=== PATIENT | female | born 1960 | race African-American/Black ===

== ENCOUNTER 2017-02-13 08:43 | Emergency (ER) | payer BC ==
[2017-02-13] MEDS ORDERED: LIDOCAINE 2% VISCOUS SOLN 20 ML UDCUP PO ONE (09:31)
[2017-02-13] MEDS ORDERED: PREDNISONE 20 MG TABLET PO ONE (09:31)
[2017-02-13] MEDS ORDERED: AMLODIPINE BESYLATE 5 MG TABLET PO ONE (09:31)
[2017-02-13] MEDS ORDERED: MAG HYDROX/AL HYDROX/SIMETH SUSP 30 ML UDCUP PO ONE (09:31)
[2017-02-13] MEDS ORDERED: METOCLOPRAMIDE HCL ORAL SOLN 10 MG/10 ML UDCUP PO ONE (09:31)
--- NOTE | 2017-02-13 10:52 | ER Document Report ---
ED General - General Chief Complaint: High Blood Pressure Stated Complaint: SORE THROAT Time Seen by Provider: 02/13/17 09:23 TRAVEL OUTSIDE OF THE [place] IN LAST 30 DAYS: No - HPI Patient complains to provider of: Sore throat Notes: Patient is coming in for evaluation of sore throat patient noted in triage to have elevated blood pressure. Patient states sore throat ongoing for the last 2 -3 days. Patient states that she does smoke cigarettes no recent sick contacts no recent antibiotics. Patient also denies any recent travel. Upon my evaluation patient is sitting comfortably no obvious distress no drooling controlling her own secretions managing her own airway. Patient states that she was on blood pressure medication at one time however she has not had any medication greater than a month. States that she is unaware of the medication as she was on previously. Denies any headaches chest pain abdominal pain nausea vomiting fevers or chills. - Related Data Allergies/Adverse Reactions: No Known Allergies Allergy (Verified 02/13/17 08:53) Past Medical History - Social History Smoking Status: Current Every Day Smoker Chew tobacco use (# tins/day): No Frequency of alcohol use: None Drug Abuse: None Family History: Reviewed & Not Pertinent - Past Medical History Cardiac Medical History: Reports: Hx Hypertension Renal/ Medical History: Denies: Hx Peritoneal Dialysis Surgical Hx: Negative - Immunizations Hx Diphtheria, Pertussis, Tetanus Vaccination: No Review of Systems - Review of Systems Constitutional: Other - Hypertension EENT: Throat pain Cardiovascular: No symptoms reported Respiratory: No symptoms reported Gastrointestinal: No symptoms reported Genitourinary: No symptoms reported Female Genitourinary: No symptoms reported Musculoskeletal: No symptoms reported Skin: No symptoms reported Hematologic/Lymphatic: No symptoms reported Neurological/Psychological: No symptoms reported Physical Exam - Vital signs Vitals: Temp Pulse Resp BP Pulse Ox 99.7 F 85 18 179/121 H 97 02/13/17 08:52 02/13/17 08:52 02/13/17 08:52 02/13/17 08:52 02/13/17 08:52 Interpretation: Hypertensive - General General appearance: Appears well, Alert - HEENT Head: Normocephalic, Atraumatic Eyes: Normal Pupils: PERRL Ears: Normal External canal: Normal Tympanic membrane: Normal Sinus: Normal Nasal: Normal Pharynx: Erythema Neck: Normal - Respiratory Respiratory status: No respiratory distress Chest status: Nontender Breath sounds: Normal Chest palpation: Normal - Cardiovascular Rhythm: Regular Heart sounds: Normal auscultation Murmur: No - Abdominal Inspection: Normal Distension: No distension Bowel sounds: Normal Tenderness: Nontender Organomegaly: No organomegaly - Back Back: Normal, Nontender - Extremities General upper extremity: Normal inspection, Nontender, Normal color, Normal ROM , Normal temperature General lower extremity: Normal inspection, Nontender, Normal color, Normal ROM , Normal temperature, Normal weight bearing. No: Rodger's sign - Neurological Neuro grossly intact: Yes Cognition: Normal Orientation: AAOx4 [place] Coma Scale Eye Opening: Spontaneous Carl Coma Scale Verbal: Oriented Carl Coma Scale Motor: Obeys Commands [place] Coma Scale Total: 15 Speech: Normal Motor strength normal: LUE, RUE, LLE, RLE Sensory: Normal - Psychological Associated symptoms: Normal affect, Normal mood - Skin Skin Temperature: Warm Skin Moisture: Dry Skin Color: Normal Course - Re-evaluation Re-evalutation: 02/13/17 14:05 Patient coming in for evaluation of hypertension. Patient was given a dose of amlodipine here. Patient was also given a prescription for amlodipine encouraged follow-up with primary care physician for further evaluation of her hypertension. Patient sore throat more likely related to her smoking viral etiology there is no signs of strep patient will be discharged home. - Vital Signs Vital signs: Temp Pulse Resp BP Pulse Ox 99.0 F 73 20 150/107 H 97 02/13/17 10:53 02/13/17 10:53 02/13/17 10:53 02/13/17 10:53 02/13/17 10:53 Discharge - Discharge Clinical Impression: Sore throat (viral) Hypertension Qualifiers: Hypertension type: essential hypertension Qualified Code(s): I10 - Essential ( primary) hypertension Condition: Good Disposition: HOME, SELF-CARE Instructions: Calcium Channel Blockers ([facility]), High Blood Pressure, Requiring Treatment ([facility]), Sore Throat ([facility]) Additional Instructions: Follow-up with your primary care physician. Return to ER symptoms worsen. Take medications as prescribed. More likely your sore throat is either due to irritation from smoking or a viral etiology. Prescriptions: Amlodipine Besylate 5 mg PO DAILY #30 tab Prednisone [Deltasone 20 mg Tablet] 3 tab PO DAILY 5 Days tablet Forms: Elevated Blood Pressure
[2017-02-13 10:56] VITALS: BP 150/107
== END 2017-02-13 10:56 | disposition home or self-care (01) ==
LOC: ER 08:43
DX: J02.9 Acute pharyngitis, unspecified (principal); I10 Essential (primary) hypertension; F17.200 Nicotine dependence, unspecified, uncomplicated
CPT/HCPCS: 99282; 87070; 87880; J3490; J7512

== ENCOUNTER 2017-03-01 09:59 | Emergency (ER) | payer BC ==
[2017-03-01] MEDS ORDERED: ALBUTEROL SULFATE 0.083% NEB 2.5 MG/3 ML AMPUL NEB ONE (10:58)
--- NOTE | 2017-03-01 11:59 | RADIOLOGY REPORT (SQ) ---
EXAM DESCRIPTION: SOFT TISSUE NECK COMPLETED DATE/TIME: 03/01/2017 11:30 am REASON FOR STUDY: chest COMPARISON: None. NUMBER OF VIEWS: Two views. TECHNIQUE: AP and lateral radiographic image of the soft tissues of the neck. LIMITATIONS: None. FINDINGS: EPIGLOTTIS: Normal. Contour normal. Aryepiglottic folds normal. PREVERTEBRAL SOFT TISSUES: Normal. No soft tissue swelling. SUBGLOTTIC AREA: Normal. No narrowing. RETROPHARYNGEAL SPACE: Normal. No soft tissue masses. BONES: No significant findings. Degenerative changes in the cervical spine. LUNG APICES: Normal. OTHER: No radiopaque foreign body. No other significant finding. IMPRESSION: NEGATIVE STUDY OF THE SOFT TISSUES OF THE NECK. TECHNICAL DOCUMENTATION: JOB ID: [id number] [employer]- All Rights Reserved
--- NOTE | 2017-03-01 11:59 | RADIOLOGY REPORT (SQ) ---
EXAM DESCRIPTION: CHEST PA/LAT COMPLETED DATE/TIME: 03/01/2017 11:30 am REASON FOR STUDY: chest COMPARISON: None. EXAM PARAMETERS: NUMBER OF VIEWS: two views TECHNIQUE: Digital Frontal and Lateral radiographic views of the chest acquired. RADIATION DOSE: NA LIMITATIONS: none FINDINGS: LUNGS AND PLEURA: No opacities, masses or pneumothorax. No pleural effusion. MEDIASTINUM AND HILAR STRUCTURES: No masses or contour abnormalities. HEART AND VASCULAR STRUCTURES: Heart normal size. No evidence for failure. BONES: No acute findings. HARDWARE: None in the chest. OTHER: No other significant finding. IMPRESSION: NO SIGNIFICANT RADIOGRAPHIC FINDING IN THE CHEST. TECHNICAL DOCUMENTATION: JOB ID: [id number] [employer]- All Rights Reserved
--- NOTE | 2017-03-01 12:13 | ER Document Report ---
HPI - HPI Patient complains to provider of: Sore throat Onset: Other Onset/Duration: Gradual Quality of pain: Burning Severity: Moderate Pain Level: 3 Context: Patient states she has had a sore throat for 1 month, was seen 2 weeks ago and given prednisone. Now she has right ear ringing and popping, and productive cough. Unsure if any fever. Associated Symptoms: Productive cough, Sore throat. denies: Fever, Headache Exacerbated by: Denies Relieved by: Denies Similar symptoms previously: Yes Recently seen / treated by doctor: Yes - ROS ROS below otherwise negative: Yes Systems Reviewed and Negative: Yes All other systems reviewed and negative - CONSTITUTIONAL Constitutional: DENIES: Fever - EENT EENT: REPORTS: Sore Throat, Ear Pain, Nasal Drainage-Clear, Congestion - NEURO Neurology: DENIES: Headache - CARDIOVASCULAR Cardiovascular: DENIES: Chest pain - RESPIRATORY Respiratory: REPORTS: Coughing. DENIES: Trouble Breathing - GASTROINTESTINAL Gastrointestinal: DENIES: Abdominal Pain - URINARY Urinary: DENIES: Dysuria - REPRODUCTIVE Reproductive: DENIES: : - MUSCULOSKELETAL Musculoskeletal: DENIES: Extremity pain - DERM Skin Color: Normal Past Medical History - General Information source: Patient - Social History Smoking Status: Current Every Day Smoker Chew tobacco use (# tins/day): No Frequency of alcohol use: None Drug Abuse: None Lives with: Family Family History: Reviewed & Not Pertinent Patient has suicidal ideation: No Patient has homicidal ideation: No - Past Medical History Cardiac Medical History: Reports: Hx Hypertension Surgical Hx: Negative - Immunizations Hx Diphtheria, Pertussis, Tetanus Vaccination: No Vertical Provider Document - CONSTITUTIONAL Agree With Documented VS: Yes Exam Limitations: No Limitations General Appearance: WD/WN, No Apparent Distress - INFECTION CONTROL TRAVEL OUTSIDE OF THE [place] IN LAST 30 DAYS: No - HEENT HEENT: Atraumatic, Normocephalic, Pharyngeal Erythema - mild Notes: TMs dull bilaterally, right more than left. - NECK Neck: Normal Inspection, Supple - RESPIRATORY Respiratory: No Respiratory Distress, Rhonchi, Wheezing O2 Sat by Pulse Oximetry: 99 - CARDIOVASCULAR Cardiovascular: Regular Rate, Regular Rhythm - GI/ABDOMEN Gastrointestinal: Abdomen Soft, Abdomen Non-Tender - MUSCULOSKELETAL/EXTREMETIES Musculoskeletal/Extremeties: MAEW - NEURO Level of Consciousness: Awake, Alert, Appropriate - DERM Integumentary: Warm, Dry, No Rash Course - Re-evaluation Re-evalutation: 03/01/17 12:05 X-rays showed no swelling or abnormality. This was discussed with the patient. - Vital Signs Vital signs: Temp Pulse Resp BP Pulse Ox 9.3 F L 78 16 169/98 H 99 03/01/17 10:15 03/01/17 10:15 03/01/17 10:15 03/01/17 10:15 03/01/17 10:15 Discharge - Discharge Clinical Impression: Sore throat, URI, acute, Bronchitis Condition: Good Disposition: HOME, SELF-CARE Additional Instructions: Take all meds as prescribed stop smoking Coricidin HBP for sinus and chest congestion Inhaler 2 puffs every 4 hours for coughing and/or wheezing [facility], information is on your discharge paperwork Tylenol or Motrin as needed Push fluids return if worsens and as needed Prescriptions: Azithromycin [Zithromax 250 mg Tablet] 250 mg PO ASDIR PRN #6 tablet PRN Reason: Prednisone 20 mg PO BID #6 tablet
[2017-03-01] MEDS ORDERED: ALBUTEROL SULFATE HFA (90 MCG/PUFF) 8 GM MDI (1 MDI/ER DISP) IH ONE (12:15)
[2017-03-01 12:27] VITALS: BP 150/85
== END 2017-03-01 12:27 | disposition home or self-care (01) ==
LOC: ER 09:59
DX: J02.9 Acute pharyngitis, unspecified (principal); J40 Bronchitis, not specified as acute or chronic; R05 Cough; H93.11 Tinnitus, right ear; F17.200 Nicotine dependence, unspecified, uncomplicated; I10 Essential (primary) hypertension
CPT/HCPCS: 70360; 71020; 94640; 99283

== ENCOUNTER 2017-04-30 04:55 | Emergency (ER) | payer BC ==
--- NOTE | 2017-04-30 05:48 | ER Document Report ---
ED General - General TRAVEL OUTSIDE OF THE [place] IN LAST 30 DAYS: No <RAGHU ZULUAGA - Last Filed: 04/30/17 07:14> <DUANECHACORTAADAL - Last Filed: 04/30/17 08:18> - General Chief Complaint: Constipation Stated Complaint: CANNOT POOP Time Seen by Provider: 04/30/17 05:13 - HPI Notes: Patient is a 56-year-old female who presents ED complaining of constipation and inability to have a bowel movement 1 month. Patient states that she did try some [id number] meds with minimal relief. Patient states that over the last 1-2 weeks she has started having abdominal cramping and rectal pain when trying to have a bowel movement. Patient states that she has not noticed any blood. Patient states that she is leaking from her rectum and the color is a brown thin liquid. Patient states that she is on some medications to help her swallow food and her blood pressure, but does not remember what medicine she is on exactly. Patient states that she was evaluated by her PCM 2 weeks ago, but stated that they did not do anything at that time for her constipation. Patient denies any narcotic use or pain medications otherwise. She denies any drug allergies. Patient states that she is otherwise eating and drinking without difficulties. She is urinating normally. Patient states that when she is on the toilet and trying to push out the stool, that is when she becomes dizzy. Patient denies any current dizziness right now. Denies any headache, fever, URI, sore throat, chest pain, palpitations, syncope, cough, shortness of breath, wheeze, dyspnea, nausea/vomiting/diarrhea, urinary retention, dysuria, hematuria, loss of control of bowel or bladder, back pain, or rash. (RAGHU ZULUAGA ) - Related Data Allergies/Adverse Reactions: No Known Allergies Allergy (Verified 04/30/17 04:59) Past Medical History - Social History Smoking Status: Unknown if Ever Smoked Family History: Reviewed & Not Pertinent - Past Medical History Cardiac Medical History: Reports: Hx Hypertension Renal/ Medical History: Denies: Hx Peritoneal Dialysis - Immunizations Hx Diphtheria, Pertussis, Tetanus Vaccination: No <RAGHU ZULUAGA - Last Filed: 04/30/17 07:14> Review of Systems <RAGHU ZULUAGA - Last Filed: 04/30/17 07:14> <CARIELALITAADAL - Last Filed: 04/30/17 08:18> - Review of Systems Notes: REVIEW OF SYSTEMS: CONSTITUTIONAL : Denies fever, chills, or sweats. Denies recent illness. EENT: Denies eye, ear, throat, or mouth pain or symptoms. Denies nasal or sinus congestion or discharge. Denies throat, tongue, or mouth swelling or difficulty swallowing. CARDIOVASCULAR: Denies chest pain. Denies palpitations or racing or irregular heart beat. Denies ankle edema. RESPIRATORY: Denies cough, cold, or chest congestion. Denies shortness of breath, difficulty breathing, or wheezing. GASTROINTESTINAL: see hpi GENITOURINARY: Denies difficulty urinating, painful urination, burning, frequency, blood in urine, or discharge. MUSCULOSKELETAL: Denies back or neck pain or stiffness. Denies joint pain or swelling. SKIN: Denies rash, lesions or sores. NEUROLOGICAL: Denies confusion or altered mental status. Denies passing out or loss of consciousness. Denies headache. Denies weakness or paralysis or loss of use of either side. Denies problems with gait or speech. Denies sensory loss, numbness, or tingling. ALL OTHER SYSTEMS REVIEWED AND NEGATIVE. Dictation was performed using [employer] voice recognition software (RAGHU ZULUAGA) Physical Exam <RAGHU ZULUAGA - Last Filed: 04/30/17 07:14> <ADAL AMBROCIO - Last Filed: 04/30/17 08:18> - Vital signs Vitals: Temp Pulse Resp BP Pulse Ox 98.4 F 93 20 116/71 93 04/30/17 04:59 04/30/17 04:59 04/30/17 04:59 04/30/17 04:59 04/30/17 04:59 Notes: PHYSICAL EXAMINATION: GENERAL: Well-appearing, well-nourished and in no acute distress. A&Ox4 HEAD: Atraumatic, normocephalic. EYES: Pupils equal round and reactive to light, extraocular movements intact, sclera anicteric, conjunctiva are normal. ENT: Nares patent and without discharge. oropharynx clear without exudates. No tonsilar hypertrophy or erythema. Moist mucous membranes. NECK: Normal range of motion, supple without lymphadenopathy LUNGS: Breath sounds clear to auscultation bilaterally and equal. No wheezes rales or rhonchi. HEART: Regular rate and rhythm without murmurs, rubs, gallops. ABDOMEN: Soft, nontender, nondistended abdomen. No guarding, no rebound. No masses appreciated. Normal bowel sounds present. No CVA tenderness bilaterally. Rectal: + impaction w/o sosa blood. Musculoskeletal: FROM to passive/active. Strength 5+/5. Extremities: No cyanosis, clubbing, or edema b/l. Peripheral pulses 2+. Capillary refill less than 3 seconds. PSYCH: Normal mood, normal affect. SKIN: Warm, Dry, normal turgor, no rashes or lesions noted. (RAGHU ZULUAGA) Course - Laboratory Result Diagrams: 04/30/17 05:51 04/30/17 05:51 <RAGHU ZULUAGA - Last Filed: 04/30/17 07:14> - Laboratory Result Diagrams: 04/30/17 05:51 04/30/17 05:51 <ADAL AMBROCIO - Last Filed: 04/30/17 08:18> - Re-evaluation Re-evalutation: 04/30/17 05:50 Patient is an afebrile, well-hydrated, 56-year-old female who presents the ED with constipation and fecal impaction to the rectum. Vitals are stable. PE is otherwise unremarkable. Bowel disimpaction was performed successfully without any complications. There was no sosa blood noted. CBC, CMP, acute abdomen series pending. We will give the patient an enema pending the x-ray result. 04/30/17 07:[address] Ambrocio. Reviewed results with patient. Enema ordered. Pt to be discharged thereafter if everything goes well and she is feeling better. Labs unremarkable Imaging unremarkable. (RAGHU ZULUAGA) 04/30/17 08:16 Reevaluation: Patient and nurse report modest results from enema. Patient states she is more comfortable. Results of radiographic studies discussed with patient. Ongoing management strategies discussed with patient. (ADAL AMBROCIO) - Vital Signs Vital signs: Temp Pulse Resp BP Pulse Ox 98.4 F 93 20 116/71 93 04/30/17 04:59 04/30/17 04:59 04/30/17 04:59 04/30/17 04:59 04/30/17 04:59 - Laboratory Laboratory results interpreted by me: 04/30/17 04/30/17 05:51 05:51 WBC 13.1 H RBC 5.31 H RDW 14.1 H Abs Neuts (Manual) 10.1 H Sodium 130.4 L Potassium 3.5 L Chloride 81 L Carbon Dioxide 32 H BUN 34 H Est GFR ( Amer) 56 L Est GFR (Non-Af Amer) 47 L Glucose 133 H Direct Bilirubin 0.5 H Procedures - Additional Procedures Fecal disimpaction Time performed: 05:35 Additional Procedures: Other - fecal disimpaction <RAGHU ZULUAGA - Last Filed: 04/30/17 07:14> <ADAL AMBROCIO - Last Filed: 04/30/17 08:18> - Additional Procedures Fecal disimpaction Notes: 04/30/17 05:48 An abundant amount of stool was removed from the colon. Pt tolerated procedure well No complications or blood noted. (RAGHU ZULUAGA) Discharge <RAGHU ZULUAGA - Last Filed: 04/30/17 07:14> <ADAL AMBROCIO - Last Filed: 04/30/17 08:18> - Discharge Clinical Impression: Fecal impaction in rectum Constipation Qualifiers: Constipation type: unspecified constipation type Qualified Code(s): K59.00 - Constipation, unspecified Condition: Stable Instructions: Constipation ([facility]), Stool Softener ([facility]) Additional Instructions: Maintain adequate fluid (increase water intake) intake Increase fiber in diet tylenol if needed Stool softener daily Monitor for any worsening symptoms Make sure you are staying hydrated enough to urinate and have normal BM's Recheck with your PCM in 3-5 days Consider consult with Gastroenterology for ongoing/worsening symptoms--Dr. Ricketts information provided Return to the ED with any worsening symptoms and/or development of fever, headache, chest pain, palpitations, syncope, shortness of breath, trouble breathing, abdominal pain, n/v/d, blood in stool/urine, weakness, or other worsening symptoms that are concerning to you. Prescriptions: Polyethylene Glycol 3350 [Miralax] 1 cap PO DAILY #527 powder Referrals: KATHY RICKETTS MD [ACTIVE STAFF] - Follow up as needed [facility] [Provider Group] - Follow up in 3-5 days
[2017-04-30 06:02] LABS: HEMATOCRIT 43.5 % (36.0-47.0); HEMOGLOBIN 14.9 g/dL (12.0-15.5); HGB HCT DIFFERENCE 1.2; MEAN CORPUSCULAR HGB CONC 34.2 g/dL (32.0-36.0); MEAN CORPUSCULAR VOLUME 82 fl (80-97); RED BLOOD COUNT 5.31 10^6/uL (3.72-5.28); RED CELL DISTRIBUTION WIDTH 14.1 % (11.5-14.0); WHITE BLOOD COUNT 13.1 10^3/uL (4.0-10.5)
[2017-04-30 06:17] LABS: ALANINE AMINOTRANSFERASE 23 U/L (9-52); ALBUMIN 3.8 g/dL (3.5-5.0); ALKALINE PHOSPHATASE 82 U/L (38-126); ANION GAP 17 (5-19); ASPARTATE AMINO TRANSFERASE 19 U/L (14-36); BILIRUBIN,DIRECT 0.5 mg/dL (0.0-0.4); BILIRUBIN,TOTAL 0.8 mg/dL (0.2-1.3); BLOOD UREA NITROGEN 34 mg/dL (7-20); CARBON DIOXIDE 32 mmol/L (22-30); CHLORIDE 81 mmol/L (98-107); CREATININE RESULT 1.19 mg/dL (0.52-1.25); GLUCOSE 133 mg/dL (75-110); POTASSIUM 3.5 mmol/L (3.6-5.0); SODIUM 130.4 mmol/L (137-145); TOTAL PROTEIN 7.4 g/dL (6.3-8.2)
[2017-04-30 06:21] LABS: BASOPHILS % (MANUAL) 0 % (0-2); EOSINOPHILS % (MANUAL) 0 % (0-6); LYMPHOCYTES % (MANUAL) 16 % (13-45); TOTAL CELLS COUNTED 100
[2017-04-30 06:22] LABS: TOXIC GRANULATION SLIGHT; TOXIC VACUOLATION PRESENT
[2017-04-30 06:23] LABS: ANISOCYTOSIS SLIGHT; OVALOCYTES SLIGHT; POIKILOCYTOSIS 1+; STOMATOCYTES 1+
--- NOTE | 2017-04-30 06:50 | RADIOLOGY REPORT (SQ) ---
EXAM DESCRIPTION: ACUTE ABDOMEN SERIES COMPLETED DATE/TIME: 04/30/2017 6:29 am REASON FOR STUDY: constipated x2 weeks, abdominal pain COMPARISON: None. NUMBER OF VIEWS: Three views. TECHNIQUE: Frontal chest, supine abdomen and upright/decubitus abdomen radiographic images acquired. LIMITATIONS: None. FINDINGS: CHEST: Lungs clear of infiltrates. FREE AIR: None. No abnormal gas collections. BOWEL GAS PATTERN: Nonobstructive pattern. No dilated loops or air fluid levels. Small sigmoid stool retention. CALCIFICATIONS: No suspicious calcifications. Atherosclerosis. HARDWARE: None in the abdomen. SOFT TISSUES: No gross mass or suggestion of organomegaly. BONES: No acute fracture. No worrisome bone lesions. Mild osteoarthritis of the right hip. OTHER: No other significant finding. IMPRESSION: NO RADIOGRAPHIC EVIDENCE FOR ACUTE ABDOMINAL DISEASE. TECHNICAL DOCUMENTATION: JOB ID: [id number] [employer]- All Rights Reserved
[2017-04-30] MEDS ORDERED: MINERAL OIL 30 ML UDCUP PR ONE (07:10)
[2017-04-30 08:36] VITALS: BP 97/68
== END 2017-04-30 08:35 | disposition home or self-care (01) ==
LOC: ER 04:55
DX: K59.00 Constipation, unspecified (principal); I10 Essential (primary) hypertension; Z79.899 Other long term (current) drug therapy
CPT/HCPCS: 99284; 36415; 85025; 80053; 74022; J3490

== ENCOUNTER 2017-05-06 08:27 | Emergency (ER) | payer BC ==
[2017-05-06] MEDS ORDERED: NORMAL SALINE 1000 ML 1,000 ML IV ONE (09:40)
--- NOTE | 2017-05-06 10:07 | RADIOLOGY REPORT (SQ) ---
EXAM DESCRIPTION: CT ABD/PELVIS NO ORAL OR IV COMPLETED DATE/TIME: 05/06/2017 9:52 am REASON FOR STUDY: ? obstruction COMPARISON: None. TECHNIQUE: CT scan of the abdomen and pelvis performed without intravenous or oral contrast. Images reviewed with lung, soft tissue, and bone windows. Reconstructed coronal and sagittal MPR images revi ewed. All images stored on PACS. All CT scanners at this facility use dose modulation, iterative reconstruction, and/or weight based d osing when appropriate to reduce radiation dose to as low as reasonably achievable (ALARA). [facility]: Dose Right [facility]: CareDose [facility]: Dose Right [facility]: Teradose 4D [facility]: [employer] RADIATION DOSE: mGy. LIMITATIONS: None. FINDINGS: LOWER CHEST: No significant findings. No nodules or infiltrates. NON-CONTRASTED LIVER, SPLEEN, ADRENALS: Evaluation limited by lack of IV contrast. No identified sign ificant masses. PANCREAS: No masses. No peripancreatic inflammatory changes. GALLBLADDER: No identified stones by CT criteria. No inflammatory changes to suggest cholecystitis. RIGHT KIDNEY AND URETER: No suspicious masses. Assessment limited by lack of IV contrast. No signif icant calcifications. No hydronephrosis or hydroureter. LEFT KIDNEY AND URETER: No suspicious masses. Assessment limited by lack of IV contrast. No signifi cant calcifications. No hydronephrosis or hydroureter. AORTA AND RETROPERITONEUM: No aneurysm. No retroperitoneal masses or adenopathy. BOWEL AND PERITONEAL CAVITY: No obvious masses or inflammatory changes. No free fluid. APPENDIX: Normal. PELVIS, BLADDER, AND ABDOMINAL WALL:Calcified uterine fibroids. No free fluid. Bladder normal. BONES: No significant findings. OTHER: No other significant finding. IMPRESSION: CALCIFIED UTERINE FIBROIDS. NO OTHER SIGNIFICANT OR ACUTE PROCESS IN THE ABDOMEN OR PEL VIS. COMMENT: Quality ID # [id number]: Final reports with documentation of one or more dose reduction techniques (e.g., Automated exposure control, adjustment of the mA and/or kV according to patient size, use of iterative reconstruction technique) TECHNICAL DOCUMENTATION: JOB ID: [id number]- All Rights Reserved
[2017-05-06 10:47] LABS: ABSOLUTE BASOPHILS # (AUTO) 0.1 10^3/uL (0.0-0.2); ABSOLUTE LYMPHOCYTES (AUTO) 2.4 10^3/uL (0.5-4.7); ABSOLUTE MONOCYTES (AUTO) 0.9 10^3/uL (0.1-1.4); ABSOLUTE NEUT (AUTO) 12.8 10^3/uL (1.7-8.2); BASOPHILS % (AUTO) 0.4 % (0-2); EOSINOPHILS % (AUTO) 0.1 % (0-6); HEMATOCRIT 45.6 % (36.0-47.0); HEMOGLOBIN 15.2 g/dL (12.0-15.5); LYMPHOCYTES % (AUTO) 14.9 % (13-45); MEAN CORPUSCULAR HEMOGLOBIN 27.7 pg (27.0-33.4); MEAN CORPUSCULAR HGB CONC 33.5 g/dL (32.0-36.0); MEAN CORPUSCULAR VOLUME 83 fl (80-97); MONOCYTES % (AUTO) 5.6 % (3-13); RED BLOOD COUNT 5.51 10^6/uL (3.72-5.28); RED CELL DISTRIBUTION WIDTH 14.3 % (11.5-14.0); WHITE BLOOD COUNT 16.2 10^3/uL (4.0-10.5)
[2017-05-06 11:07] LABS: ALANINE AMINOTRANSFERASE 16 U/L (9-52); ALBUMIN 4.1 g/dL (3.5-5.0); ALKALINE PHOSPHATASE 104 U/L (38-126); ANION GAP 17 (5-19); ASPARTATE AMINO TRANSFERASE 18 U/L (14-36); BILIRUBIN,DIRECT 0.7 mg/dL (0.0-0.4); BILIRUBIN,TOTAL 1.4 mg/dL (0.2-1.3); BLOOD UREA NITROGEN 33 mg/dL (7-20); CALCIUM 10.1 mg/dL (8.4-10.2); CARBON DIOXIDE 37 mmol/L (22-30); CHLORIDE 76 mmol/L (98-107); CREATININE RESULT 1.35 mg/dL (0.52-1.25); GLUCOSE 121 mg/dL (75-110); LIPASE 263.3 U/L (23-300); POTASSIUM 3.7 mmol/L (3.6-5.0); SODIUM 129.7 mmol/L (137-145); TOTAL PROTEIN 8.7 g/dL (6.3-8.2)
--- NOTE | 2017-05-06 12:20 | RADIOLOGY REPORT (SQ) ---
EXAM DESCRIPTION: CHEST SINGLE VIEW COMPLETED DATE/TIME: 05/06/2017 12:11 pm REASON FOR STUDY: cough COMPARISON: 03/01/2017. EXAM PARAMETERS: NUMBER OF VIEWS: One view. TECHNIQUE: Single frontal radiographic view of the chest acquired. RADIATION DOSE: NA LIMITATIONS: None. FINDINGS: LUNGS AND PLEURA: No opacities, masses or pneumothorax. No pleural effusion. MEDIASTINUM AND HILAR STRUCTURES: No masses. Contour normal. HEART AND VASCULAR STRUCTURES: Heart normal in size. Normal vasculature. BONES: No acute findings. HARDWARE: None in the chest. OTHER: No other significant finding. IMPRESSION: NO ACUTE RADIOGRAPHIC FINDING IN THE CHEST. TECHNICAL DOCUMENTATION: JOB ID: [id number] [employer]- All Rights Reserved
[2017-05-06] MEDS ORDERED: NORMAL SALINE 500 ML IV ONE (14:04)
[2017-05-06 14:29] LABS: APPEARANCE,URINE CLOUDY; BILIRUBIN,URINE NEGATIVE (NEGATIVE); GLUCOSE, URINE NEGATIVE (NEGATIVE); KETONES,URINE NEGATIVE (NEGATIVE); LEUKOCYTE ESTERASE,URINE NEGATIVE (NEGATIVE); NITRITE,URINE NEGATIVE (NEGATIVE); PROTEIN,URINE 100 mg/dL (NEGATIVE); URINE SPECIFIC GRAVITY 1.015
--- NOTE | 2017-05-06 16:03 | ER Document Report ---
ED Dizziness/Weakness - General Chief Complaint: Dizziness Stated Complaint: DIZZINESS Time Seen by Provider: 05/06/17 09:22 Mode of Arrival: Ambulatory Information source: Patient Notes: Patient is a 56-year-old black female comes emergency room onset of dizziness and diarrhea. Patient was seen here on April 30 for constipation. At that time she had a disimpaction done by the provider and was placed on MiraLAX. She took 4-5 days worth of it stopped it on this past Tuesday and patient started having some diarrhea on Tuesday today she got to work and had several bouts of diarrhea got dizzy and had a near syncopal episode but was able to get to ER. She denies any loss of consciousness or falls from the lightheaded and dizziness. She also denies any vomiting. Physical exam patient informed me that she is a primary doctor who is working her up for weight loss of 100+ pounds in the past 2 months. Patient states that they are following some type of nodules in her neck area and they are working out for the metastatic problem. TRAVEL OUTSIDE OF THE [place] IN LAST 30 DAYS: No - HPI Patient complains to provider of: Dizziness, Near-syncope, Weakness Onset: Other - 2 days Onset/Duration: Gradual, Intermittent, Worse Quality of pain: Achy Severity: Moderate Pain Level: 3 Associated symptoms: Diarrhea, Dizzy, Lightheaded Exacerbated by: denies: Change in position, Movement of head, Other Baseline gait: Walks w/o assistance - Related Data Allergies/Adverse Reactions: No Known Allergies Allergy (Verified 05/06/17 08:29) Past Medical History - General Information source: Patient Last Menstrual Period: Postmenopausal - Social History Smoking Status: Current Every Day Smoker Cigarette use (# per day): Yes - 1 pack a day Chew tobacco use (# tins/day): No Smoking Education Provided: Yes Frequency of alcohol use: None Drug Abuse: None Lives with: Family Family History: Reviewed & Not Pertinent Patient has suicidal ideation: No Patient has homicidal ideation: No - Medical History Medical History: Negative - Past Medical History Cardiac Medical History: Reports: None, Hx Hypertension Pulmonary Medical History: Reports: None EENT Medical History: Reports: None Renal/ Medical History: Denies: Hx Peritoneal Dialysis - Immunizations Hx Diphtheria, Pertussis, Tetanus Vaccination: No Review of Systems - Review of Systems Constitutional: Malaise, Weakness EENT: No symptoms reported Cardiovascular: No symptoms reported Respiratory: No symptoms reported Gastrointestinal: Diarrhea, Nausea Genitourinary: No symptoms reported Female Genitourinary: No symptoms reported Musculoskeletal: No symptoms reported Skin: No symptoms reported Hematologic/Lymphatic: No symptoms reported Neurological/Psychological: No symptoms reported -: Yes All other systems reviewed and negative Physical Exam - Vital signs Vitals: Temp Pulse Resp BP Pulse Ox 96.9 F L 72 18 95/81 L 100 05/06/17 08:33 05/06/17 08:33 05/06/17 08:33 05/06/17 08:33 05/06/17 08:33 Interpretation: Hypotensive - Notes Notes: Patient is a 56-year-old female who on physical exam in the room looks awake alert and oriented. She is currently in no distress. - HEENT Head: Normocephalic, Other - Patient displays some bitemporal wasting. Eyes: Normal Nasal: Normal Mouth/Lips: Normal Mucous membranes: Normal Pharynx: Normal Neck: Anterior cervical chain, Lymphadenopathy, Supple - Respiratory Respiratory status: No respiratory distress. No: Respiratory distress, Agonal respirations, Cyanosis, Depressed respirations, Labored, Pursed lip breathing, Retractions, Tachypnea, Tripod position, Other Breath sounds: Normal. No: Decreased air movement, Nonproductive cough, Productive cough, Rales, Rhonchi, Stridor, Wheezing, Other - Cardiovascular Rhythm: Regular Heart sounds: Normal auscultation Murmur: No - Abdominal Inspection: Morbidly Obese Distension: Distended. No: No distension, Tympanitic, Fluid wave, Distended bladder, Other Bowel sounds: Hypoactive Tenderness: Tender. No: Nontender, McBurney's point, Mello's sign, Guarding, Rebound, Other Organomegaly: Hepatomegaly - Genitourinary External exam: Normal - Extremities General upper extremity: Normal inspection General lower extremity: Normal inspection - Neurological Neuro grossly intact: Yes Cognition: Normal Orientation: AAOx4, Disoriented to events [place] Coma Scale Eye Opening: Spontaneous [place] Coma Scale Verbal: Oriented [place] Coma Scale Motor: Obeys Commands [place] Coma Scale Total: 15 Speech: Normal Additional motor exam normals: Equal principal administrative clerk, Dorsiflexion, Plantar flexion, Weakness. No: Involuntary movements, Pronator drift, Hemiplegia, Other - Skin Skin Temperature: Warm Skin Moisture: Dry Skin Color: Normal, [place] Course - Vital Signs Vital signs: Temp Pulse Resp BP Pulse Ox 96.9 F L 72 18 95/81 L 100 05/06/17 08:33 05/06/17 08:33 05/06/17 08:33 05/06/17 08:33 05/06/17 08:33 - Laboratory Result Diagrams: 05/06/17 10:24 05/06/17 10:24 Laboratory results interpreted by me: 05/06/17 05/06/17 05/06/17 10:24 10:24 13:52 WBC 16.2 H RBC 5.51 H RDW 14.3 H Seg Neutrophils % 79.0 H Absolute Neutrophils 12.8 H Sodium 129.7 L Chloride 76 L Carbon Dioxide 37 H BUN 33 H Creatinine 1.35 H Est GFR ( Amer) 49 L Est GFR (Non-Af Amer) 40 L Glucose 121 H Total Bilirubin 1.4 H Direct Bilirubin 0.7 H Total Protein 8.7 H Urine Protein 100 H Urine Urobilinogen 4.0 H - Diagnostic Test Radiology reviewed: Reports reviewed - X-ray of the chest was negative, CT of the abdomen and pelvis without contrast was normal with normal appendix. There was no sign of any obstruction. There is no sign of any dissections. - Transfer of Care Notes: 05/06/17 16:13 Patient came in the emergency room stating that she had lost over 100+ pounds in the last couple months. Her primary care provider is working her up and she has not a meeting with oncologist sometime 06 May. Patient has been having bouts of constipation versus diarrhea. She was here on 30 April or she had a disimpaction done by the provider then. She had good response to the MiraLAX. MiraLAX however gave her constant diarrhea. Currently the only abnormality we can find patient is a 16,000 white count that could be from demargination of the with the diarrhea her labs are not really good. Diagnostics are also very well presented and good. At this time the patient go home we will give her something for the diarrhea cramping and she will follow up with her primary care provider on Tuesday. Patient has been informed if she continues with diarrhea she may start Imodium [id number] but take it very slowly and not to take it all at once because we do not want to go from having diarrhea to having a cork very quickly. 05/06/17 16:15 Discharge - Discharge Clinical Impression: Diarrhea Qualifiers: Diarrhea type: unspecified type Qualified Code(s): R19.7 - Diarrhea, unspecified Condition: Good Disposition: HOME, SELF-CARE Instructions: Dizziness ([facility]), Diarrhea, Nonspecific ([facility]) Additional Instructions: Home and rest. Medication as prescribed. Continue with fluids. Monitor your temperature should you have any increase return to ER for recheck. Highly suggest you contact your primary care provider for reevaluation on Tuesday. Should you have any concerns over the weekend return to ER for recheck. Prescriptions: Hyoscyamine Sulfate [Levsin 0.125 Tablet] 0.125 mg PO QID #20 tablet Promethazine HCl 25 mg PO Q6 PRN #20 ml PRN Reason: Referrals: ADAL DÍAZ MD [Primary Care Provider] - Follow up as needed
[2017-05-06 16:34] VITALS: BP 142/85
== END 2017-05-06 17:02 | disposition home or self-care (01) ==
LOC: ER 08:27
DX: R19.7 Diarrhea, unspecified (principal); R55 Syncope and collapse; R16.0 Hepatomegaly, not elsewhere classified; R53.1 Weakness; R53.81 Other malaise; R11.0 Nausea; R59.0 Localized enlarged lymph nodes; R63.4 Abnormal weight loss; Z68.23 Body mass index [BMI] 23.0-23.9, adult; F17.210 Nicotine dependence, cigarettes, uncomplicated
CPT/HCPCS: 99284; 96360; 96361; 36415; 83690; 85025; 80053; 81001; 71010; 74176; J7030; J7040

== ENCOUNTER 2017-05-26 12:25 | Inpatient (IN) | payer BC ==
[2017-05-26] MEDS ORDERED: DIPHENHYDRAMINE HCL 50 MG/ML VIAL ONE (12:47)
[2017-05-26] MEDS ORDERED: NALOXONE HCL INJ/PF 0.4 MG/1 ML SDV ONE (12:47)
[2017-05-26] MEDS ORDERED: ONDANSETRON HCL INJ/PF 4 MG/2 ML SDV ONE (12:47)
[2017-05-26] MEDS ORDERED: FLUMAZENIL INJ 0.5 MG/5 ML VIAL ONE (12:48)
[2017-05-26] MEDS ORDERED: MIDAZOLAM 2 MG/2 ML INJ ONE (12:48)
[2017-05-26] MEDS ORDERED: GLUCAGON,HUMAN RECOMB 1 MG INJ ONE (12:48)
[2017-05-26] MEDS ORDERED: EPINEPHRINE INJ 1 MG/10 ML DISP.SYRIN ONE (12:48)
[2017-05-26] MEDS ORDERED: FENTANYL CITRATE INJ/PF 100 MCG/2 ML AMPUL ONE (12:48)
[2017-05-26] MEDS: MIDAZOLAM 2 MG/2 ML INJ ONE ×3 (13:10→13:24)
--- NOTE | 2017-05-26 13:48 | Operative Report ---
Operative Report DATE OF SURGERY: 05/26/17 Operative Report: The risks, benefits and alternatives of the procedure including risks of bleeding, perforation requiring surgery are explained to the patient in detail and informed consent is obtained. Patient was taken to the endoscopy suite and placed in a left, lateral decubital position. Timeout was called. Conscious sedation medications are provided. A GIF Olympus upper endoscope is attempted to be introduced into the esophagus. However unable to intubate the esophagus. There appeared to be perhaps an upper esophageal lesion that was present. PREOPERATIVE DIAGNOSIS: Dysphagia, weight loss POSTOPERATIVE DIAGNOSIS: Unable to intubate the esophagus therefore procedure reported OPERATION: Attempted upper endoscopy SURGEON: KATHY ESTRADA ANESTHESIA: Moderate Sedation - 3 mg of Versed, 50 mcg of fentanyl. Conscious sedation monitoring time 30 minutes. TISSUE REMOVED OR ALTERED: None. COMPLICATIONS: None. ESTIMATED BLOOD LOSS: None. INTRAOPERATIVE FINDINGS: As described above. PROCEDURE: Patient tolerated the attempt fairly well. No postprocedure complications are noted. I have spoken to radiology we will try and get barium swallow today. She may possibly have an esophageal mass. I spoke with the patient who is willing to be admitted. I will call hospitalist service to see if they may be able to admit her. We will wait for results of the barium swallow prior to proceeding. If it is an esophageal mass that appears to be an almost complete obstruction and therefore even the stent may not be helpful. She will need an open gastrostomy, possible jejunostomy tube. Further workup if it is a malignancy will need to be done. Hematology oncology may need to be consulted. The other differential could be a Zenker's diverticulum. However since she has weight loss that would necessitate possible transfer and workup as well.
[2017-05-26] MEDS ORDERED: NORMAL SALINE 1000 ML 1,000 ML IV PRN (15:07)
[2017-05-26] MEDS ORDERED: ONDANSETRON HCL INJ/PF 4 MG/2 ML SDV IV PRN (15:07)
[2017-05-26] MEDS ORDERED: ACETAMINOPHEN 325 MG TABLET PO PRN (15:07)
--- NOTE | 2017-05-26 15:11 | RADIOLOGY REPORT (SQ) ---
EXAM DESCRIPTION: BARIUM SWALLOW ESOPHAGUS COMPLETED DATE/TIME: 05/26/2017 2:52 pm REASON FOR STUDY: RE: ? MASS R13.10 DYSPHAGIA, UNSPECIFIED COMPARISON: AP chest 05/06/2017 soft tissue neck films 03/01/2017 TECHNIQUE: Under fluoroscopic guidance, patient ingested Isovue-300. Fluoroscopic spot images and ro utine radiographic images acquired and stored on PACS. 12 MM BARIUM TABLET GIVEN: no LIMITATIONS: None. FLUOROSCOPY TIME: 1 minutes 7 series of digital images saved to PACS. FINDINGS: Patient swallowed Isovue 300 with minimal subglottic aspiration. In the upper esophagus at the thoracic inlet, a 15 cm long segment of profound esophageal luminal sam rowing and mucosal irregularity is present, worrisome for tumor throughout the upper 3rd of the esoph valerie. Remainder of the esophagus, limited views of the stomach are unremarkable. This report was discussed with Dr. 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 Intermittent subglottic aspiration of thin liquids COMMENT: Quality ID 145: Final reports for procedures using fluoroscopy that document radiation exp osure indices, or exposure time and number of fluorographic images (if radiation exposure indices are not available) TECHNICAL DOCUMENTATION: JOB ID: [id number] [employer]- All Rights Reserved
--- NOTE | 2017-05-26 15:59 | RADIOLOGY REPORT (SQ) ---
EXAM DESCRIPTION: PICC INSERTION; FLUORO/CV PLACEMENT; U/S GUIDE FOR VASCULAR ACCESS COMPLETED DATE/TIME: 05/26/2017 3:51 pm REASON FOR STUDY: IV access; IV ACCESS R13.10 DYSPHAGIA, UNSPECIFIED unable to tolerate p.o. intake COMPARISON: 05/06/2017, 03/01/2017 chest films FLUOROSCOPY TIME: 19 seconds 1 digital radiographic and 1 ultrasound images saved to PACS. TECHNIQUE: Fluoroscopic and ultrasound guided PICC placement. LIMITATIONS: None. PROCEDURE: After written consent and assessment were obtained, the patient was brought into the fluo roscopy room and place supine on the table. Ultrasound was used on the patient's left arm for PICC a ccess. The left arm was prepped and draped in a sterile fashion along with the ultrasound probe. The entry site was anesthetized with 1% lidocaine. A 21 gauge 7 cm needle was advanced through the skin a nd into the basilic vein under live ultrasound guidance. An ultrasound image was saved to PACS confi rming access site. A .018 guide wire was then inserted through the needle and into the venous system . The needle was the removed and an 11 blade scalpel was used to make a 1cm skin incision. A 5 fr pe el-away sheath was advanced over the wire and into the venous system. A measurement was then made usi ng the existing wire and live fluoroscopic guidance. The wire was then removed and the trimmed. The P ICC was advanced through the peel-away sheath and into the venous system. The peel-away sheath was re moved and the catheter was adhered to the patients arm with a stat lock. The catheter was then aspira brian and flushed and a sterile bandage was placed over the access site. A fluoroscopic spot image was saved to PACS confirming the catheter tip within the superior vena cava. IMPRESSION: SUCCESSFUL PLACEMENT OF A 5 FR DUAL LUMEN 36 CM PICC IN THE LEFT BASILIC VEIN. COMMENT: Patient medication list reviewed: Yes- Quality ID# 130:Eligible professional attests to doc umenting in the medical record they obtained, updated, or reviewed the patient's current medications. . Quality ID 145: Final reports for procedures using fluoroscopy that document radiation exposure jahaira bernadette, or exposure time and number of fluorographic images (if radiation exposure indices are not avail able) Quality ID #76: The patient was prepped and draped using maximum sterile barrier technique including cap, mask, sterile gown, sterile gloves, a large sterile sheet, hand hygiene, and 2% Chlorhexidine fo r cutaneous antisepsis. When ultrasound is used, sterile ultrasound techniques are followed requiring sterile gel and sterile probes. TECHNICAL DOCUMENTATION: JOB ID: [id number] [employer]- All Rights Reserved
[2017-05-26] MEDS ORDERED: NORMAL SALINE 10 ML SDV (AFTER EACH USE) IV PRN (16:33)
--- NOTE | 2017-05-26 17:07 | PDOC H&P ---
History of Present Illness Admission Date/PCP: 05/26/17 14:19 ADAL DÍAZ MD Patient complains of: Sore throat History of Present Illness: ANIKET NAILS is a 56 year old female with a history of hypertension who has had over the last 4 months an approximate 60 pound weight loss. Patient has had problems with difficulty swallowing solids as well as frequent regurgitation. She has had problems with being dehydrated and feeling weak and lightheaded. The patient was seen by GI today for an outpatient endoscopy and they were unable to complete that because of a near obstructing esophageal mass. The patient was sent down for a barium swallow and it appears to be a 15 cm esophageal mass. Patient reports that she has lost 60 pounds but denies any fevers or chills or night sweats. She has had frequent regurgitation but denies any abdominal pain. Denies any melena or bright blood per rectum. She does have a history of both tobacco and alcohol use. She reports that she quit drinking in January when she started losing weight and having problems. Patient also has had intermittent constipation. Past Medical History Cardiac Medical History: Reports: Hypertension Denies: Coronary Artery Disease, Myocardial Infarction Pulmonary Medical History: Denies: Asthma, Bronchitis, Chronic Obstructive Pulmonary Disease (COPD), Pneumonia Neurological Medical History: Denies: Seizures Endocrine Medical History: Reports: None Renal/ Medical History: Reports: None Musculoskeltal Medical History: 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 Hematology: Denies: Anemia Infectious Medical History: Reports: None Past Surgical History Past Surgical History: Reports: None Denies: Hysterectomy Social History Information Source: Patient Lives with: Alone Smoking Status: Current Every Day Smoker Frequency of Alcohol Use: Social Hx Recreational Drug Use: No Drugs: None Hx Prescription Drug Abuse: No - Advance Directive Resuscitation Status: Full Code Family History Family History: The patient's mother at age 48 with consultation with diabetes. Father in his 50s from complications of diabetes. Parental Family History Reviewed: Yes Children Family History Reviewed: No Sibling(s) Family History Reviewed.: No Medication/Allergy Home Medications: Amlodipine Besylate [Norvasc 10 mg Tablet] 10 mg PO DAILY 05/26/17 Pantoprazole Sodium [Protonix] 40 mg PO DAILY 05/26/17 Promethazine HCl [Phenergan 25 mg Tablet] 25 mg PO Q6HP PRN 05/26/17 Allergies/Adverse Reactions: No Known Allergies Allergy (Verified 05/06/17 08:29) Review of Systems Constitutional: PRESENT: weight loss. ABSENT: chills, fever(s), headache(s), night sweats Eyes: ABSENT: visual disturbances Ears: ABSENT: hearing changes Cardiovascular: ABSENT: chest pain, dyspnea on exertion, edema, orthropnea, palpitations Respiratory: PRESENT: cough. ABSENT: dyspnea, hemoptysis Gastrointestinal: PRESENT: as per HPI, constipation, nausea, vomiting. ABSENT: abdominal pain, bloating, melena Genitourinary: ABSENT: dysuria, hematuria Musculoskeletal: ABSENT: joint swelling Integumentary: ABSENT: rash, wounds Neurological: ABSENT: abnormal gait, abnormal speech, confusion, dizziness, focal weakness, syncope Psychiatric: ABSENT: anxiety, depression Endocrine: ABSENT: cold intolerance, heat intolerance, polydipsia, polyuria Hematologic/Lymphatic: ABSENT: easy bleeding, easy bruising Physical Exam Vital Signs: Temp Pulse Resp BP Pulse Ox 97.8 F 85 16 96/76 L 92 05/26/17 14:00 05/26/17 14:15 05/26/17 14:15 05/26/17 14:15 05/26/17 14:15 Intake & Output 05/25/17 05/26/17 05/27/17 06:59 06:59 06:59 Intake Total 300 Balance 300 Weight 63.96 kg General appearance: PRESENT: no acute distress Head exam: PRESENT: atraumatic, normocephalic, other - Bitemporal wasting Eye exam: PRESENT: conjunctiva pink, EOMI, PERRLA. ABSENT: scleral icterus Ear exam: PRESENT: normal external ear exam Mouth exam: PRESENT: moist, tongue midline Neck exam: ABSENT: carotid bruit, JVD, lymphadenopathy, thyromegaly Respiratory exam: PRESENT: clear to auscultation [place]. ABSENT: rales, rhonchi, wheezes Cardiovascular exam: PRESENT: RRR. ABSENT: diastolic murmur, rubs, systolic murmur Vascular exam: PRESENT: normal capillary refill GI/Abdominal exam: PRESENT: normal bowel sounds, soft. ABSENT: distended, guarding, mass, organolmegaly, rebound, tenderness Rectal exam: PRESENT: deferred Extremities exam: ABSENT: calf tenderness, clubbing, pedal edema Neurological exam: PRESENT: alert, awake, oriented to person, oriented to place , oriented to time, oriented to situation, CN II-XII grossly intact. ABSENT: motor sensory deficit Psychiatric exam: PRESENT: appropriate affect Skin exam: PRESENT: dry, intact, warm. ABSENT: cyanosis, rash Results Impressions: Guidance Fluoroscopy 05/26/17 00:00 IMPRESSION: SUCCESSFUL PLACEMENT OF A 5 FR DUAL LUMEN 36 CM PICC IN THE LEFT BASILIC VEIN. Interventional Vascular Procedure 05/26/17 00:00 IMPRESSION: SUCCESSFUL PLACEMENT OF A 5 FR DUAL LUMEN 36 CM PICC IN THE LEFT BASILIC VEIN. PICC Line Insertion 05/26/17 00:00 IMPRESSION: SUCCESSFUL PLACEMENT OF A 5 FR DUAL LUMEN 36 CM PICC IN THE LEFT BASILIC VEIN. 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 Intermittent subglottic aspiration of thin liquids Assessment & Plan - Diagnosis (1) Esophageal mass Is this a current diagnosis for this admission?: Yes Plan: Patient has a history of both alcohol and tobacco use in the past. She has had a 60 pound weight loss along with a 15 cm esophageal mass. This was found on barium swallow. Will check kidney function and make certain that she can have a CT scan with contrast to evaluate. The patient will be started on IV fluids because of dehydration. She most likely will need an esophageal stent placed. Once we get the CT scan we will discuss with the patient about possible transfer to a tertiary care facility. Patient has poor IV access and a PICC line was placed. (2) Hypertension Is this a current diagnosis for this admission?: Yes Plan: The patient's blood pressure is relatively low and we will hold her antihypertensives for now. - Time Time Spent: 50 to 70 Minutes - Plan Summary Plan Summary: Patient is admitted as an observation. Will decide whether or not to admit her and transfer tomorrow.
[2017-05-26 17:20] LABS: HEMATOCRIT 38.1 % (36.0-47.0); MEAN CORPUSCULAR HGB CONC 34.2 g/dL (32.0-36.0); MEAN CORPUSCULAR VOLUME 82 fl (80-97); PLATELET COUNT 458 10^3/uL (150-450); RED BLOOD COUNT 4.65 10^6/uL (3.72-5.28); RED CELL DISTRIBUTION WIDTH 14.4 % (11.5-14.0); WHITE BLOOD COUNT 13.6 10^3/uL (4.0-10.5)
[2017-05-26 17:32] LABS: ANION GAP 14 (5-19); BLOOD UREA NITROGEN 17 mg/dL (7-20); CALCIUM 10.1 mg/dL (8.4-10.2); CARBON DIOXIDE 37 mmol/L (22-30); CHLORIDE 81 mmol/L (98-107); GLUCOSE 90 mg/dL (75-110); MAGNESIUM 1.7 mg/dL (1.6-2.3)
[2017-05-26 17:33] LABS: INTERNATIONAL RATION (INR) 0.91; PROTHROMBIN TIME 12.9 SEC (11.4-15.4)
[2017-05-26 17:34] LABS: PARTIAL THROMBOPLASTIN TIME 27.4 SEC (23.5-35.8)
[2017-05-26 17:39] LABS: POTASSIUM 2.6 mmol/L (3.6-5.0)
[2017-05-26] MEDS: POTASSI CL 20 MEQ/50 ML RIDER 20 MEQ/50 ML RTUPB IV SCH ×3 (18:08→23:22)
[2017-05-26] MEDS: FAMOTIDINE INJ/PF 20 MG/2 ML SDV IV SCH (21:01)
[2017-05-26] MEDS: NORMAL SALINE 10 ML SDV (SCHEDULED) IV SCH (21:02)
[2017-05-27 06:19] LABS: ANION GAP 9 (5-19); BLOOD UREA NITROGEN 16 mg/dL (7-20); CALCIUM 9.1 mg/dL (8.4-10.2); CARBON DIOXIDE 35 mmol/L (22-30); CHLORIDE 87 mmol/L (98-107); GLUCOSE 90 mg/dL (75-110); SODIUM 130.5 mmol/L (137-145)
[2017-05-27] MEDS ORDERED: POTASSIUM CHLORIDE 10 MEQ TABLET.SA PO ONE (07:00)
[2017-05-27] MEDS: POTASSIUM CHLORIDE 20 MEQ/50 ML RTU IV SCH ×2 (07:23→09:41)
--- NOTE | 2017-05-27 09:01 | PDOC PROGRESS REPORT ---
Subjective Progress Note for:: 05/27/17 Subjective:: Patient reports that she feels better after getting IV fluids. Reason For Visit: DEHYDRATION,ESOPHAGEAL MASS Physical Exam Vital Signs: Temp Pulse Resp BP Pulse Ox 99.2 F 74 18 92/55 L 90 L 05/27/17 07:49 05/27/17 07:49 05/27/17 07:49 05/27/17 07:49 05/27/17 07:49 Intake & Output 05/26/17 05/27/17 05/28/17 06:59 06:59 06:59 Intake Total 2450 Balance 2450 Weight 65.8 kg General appearance: PRESENT: no acute distress Eye exam: PRESENT: conjunctiva pink. ABSENT: scleral icterus Ear exam: PRESENT: normal external ear exam Mouth exam: PRESENT: moist, tongue midline Neck exam: ABSENT: JVD Respiratory exam: PRESENT: clear to auscultation [place]. ABSENT: rales, rhonchi, wheezes Cardiovascular exam: PRESENT: RRR. ABSENT: diastolic murmur, rubs, systolic murmur Pulses: PRESENT: normal dorsalis pedis pul GI/Abdominal exam: PRESENT: normal bowel sounds, soft. ABSENT: distended, guarding, mass, organolmegaly, rebound, tenderness Extremities exam: ABSENT: calf tenderness, clubbing, pedal edema Neurological exam: PRESENT: alert, awake, oriented to person, oriented to place , oriented to time, oriented to situation, CN II-XII grossly intact. ABSENT: motor sensory deficit Psychiatric exam: PRESENT: appropriate affect Skin exam: PRESENT: dry, intact, warm. ABSENT: cyanosis, rash Results Laboratory Results: 05/26/17 17:11 05/27/17 05:50 05/26/17 05/26/17 05/27/17 17:11 17:11 05:50 WBC 13.6 H RBC 4.65 Hgb 13.0 Hct 38.1 MCV 82 MCH 28.0 MCHC 34.2 RDW 14.4 H Plt Count 458 H Sodium 132.0 L 130.5 L Potassium 2.6 L* 3.0 L* Chloride 81 L 87 L Carbon Dioxide 37 H 35 H Anion Gap 14 9 BUN 17 16 Creatinine 0.84 0.72 Est GFR ( Amer) > 60 > 60 Est GFR (Non-Af Amer) > 60 > 60 Glucose 90 90 Calcium 10.1 9.1 Magnesium 1.7 05/27/17 05:50 WBC RBC Hgb Hct MCV MCH MCHC RDW Plt Count Sodium Potassium Chloride Carbon Dioxide Anion Gap BUN Creatinine Est GFR ( Amer) Est GFR (Non-Af Amer) Glucose Calcium Magnesium 1.6 Impressions: Guidance Fluoroscopy 05/26/17 00:00 IMPRESSION: SUCCESSFUL PLACEMENT OF A 5 FR DUAL LUMEN 36 CM PICC IN THE LEFT BASILIC VEIN. Interventional Vascular Procedure 05/26/17 00:00 IMPRESSION: SUCCESSFUL PLACEMENT OF A 5 FR DUAL LUMEN 36 CM PICC IN THE LEFT BASILIC VEIN. PICC Line Insertion 05/26/17 00:00 IMPRESSION: SUCCESSFUL PLACEMENT OF A 5 FR DUAL LUMEN 36 CM PICC IN THE LEFT BASILIC VEIN. 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 Intermittent subglottic aspiration of thin liquids Assessment & Plan - Diagnosis (1) Esophageal mass Is this a current diagnosis for this admission?: Yes Plan: We will get a chest CT today to evaluate the esophageal mass. The patient is taking a small amount of liquids p.o. Will continue with the IV fluids. After the results of the chest CT we may need to transfer to a tertiary care center it looks like that she will need an esophageal stent and PEG tube. (2) Hypertension Is this a current diagnosis for this admission?: Yes Plan: The patient's blood pressure is relatively low and we will hold her antihypertensives for now. - Time Time Spent with patient: 25-34 minutes - Inpatient Certification Medical Necessity: Need For IV Fluids
--- NOTE | 2017-05-27 09:12 | RADIOLOGY REPORT (SQ) ---
EXAM DESCRIPTION: CT CHEST WITH COMPLETED DATE/TIME: 05/27/2017 8:57 am REASON FOR STUDY: esophageal mass R13.10 DYSPHAGIA, UNSPECIFIED COMPARISON: CT abdomen pelvis 05/06/2017 Soft tissue neck films 03/01/2017 TECHNIQUE: CT scan of the chest performed using helical scanning technique with dynamic intravenous contrast injection. Images reviewed with lung, soft tissue and bone windows. Reconstructed coronal and sagittal MPR images reviewed. All images stored on PACS. All CT scanners at this facility use dose modulation, iterative reconstruction, and/or weight based d osing when appropriate to reduce radiation dose to as low as reasonably achievable (ALARA). [facility]: Dose Right [facility]: CareDose [facility]: Dose Right [facility]: Teradose 4D [facility]: [employer] CONTRAST TYPE AND DOSE: contrast/concentration: Isovue 370.00 mg/ml; Total Contrast Delivered: 80.0 ml; Total Saline Delivered: 55.0 ml RENAL FUNCTION: Creatinine 0.7 RADIATION DOSE: CT Rad equipment meets quality standard of care and radiation dose reduction techniq ues were employed. CTDIvol: 6.7 mGy. DLP: 252 mGy-cm. . LIMITATIONS: None. FINDINGS: LUNGS AND PLEURA: There is minimal debris in the dependent portion of the left mainstem br onchus axial image 50-53. This is worrisome for aspirated material. The lungs are free of focal infiltrates. No pleural effusion. No pneumothorax. No worrisome pulmon sheri nodules. HILAR AND MEDIASTINAL STRUCTURES: The patient has a esophageal neoplasm, from the uppermost esophagus down to just above the li. Tumor measures about 4 cm transverse x 3 cm AP x 10 cm craniocaudad, best shown on sagittal image 34, and axial image 4 through 23. Mediastinal adenopathy as follows: Prevascular lymph node 2 x 0.7 cm axial image 19 Pretracheal lymph node 1.2 x 1.2 cm axial image 17 Precarinal lymph node 1.7 x 1 cm and 1.7 x 0.7 cm axial image 20 Precarinal lymph node 2.7 x 1.2 cm axial image 24 Sub- carinal lymph node 2.2 x 0.8 cm axial image 26 HEART AND VASCULAR STRUCTURES: No aneurysm or dissection. No central pulmonary emboli. No pericardi al effusion. HARDWARE: Left PICC line tip superior vena cava UPPER ABDOMEN: No significant findings. Limited exam. THYROID AND OTHER SOFT TISSUES: No masses. No adenopathy. BONES: No significant finding. OTHER: No other significant finding. IMPRESSION: CT extensive proximal 3rd esophageal tumor with mediastinal adenopathy. Small amount of dependent debris in the left mainstem bronchus worrisome for aspirated material. No pneumonia. TECHNICAL DOCUMENTATION: JOB ID: [id number] Quality ID # [id number]: Final reports with documentation of one or more dose reduction techniques (e.g., Au tomated exposure control, adjustment of the mA and/or kV according to patient size, use of iterative reconstruction technique) 2010 [email or web address]- All Rights Reserved
[2017-05-27] MEDS: FAMOTIDINE INJ/PF 20 MG/2 ML SDV IV SCH (09:48)
[2017-05-27] MEDS: NORMAL SALINE 10 ML SDV (SCHEDULED) IV SCH (09:48)
--- NOTE | 2017-05-27 13:38 | PDOC CONSULTATION ---
Consultation Consult Date: 05/27/17 Attending physician:: KATHY ESTRADA Consult reason:: dysphagia and weight loss History of Present Illness Admission Date/PCP: 05/26/17 14:19 ADAL DÍAZ MD History of Present Illness: patient was referred over to my office for dysphagia and ongoing weight loss she has been followed by the primary at [facility] patient has had some visits to the ED over here for complaints of sore throat in the past she apparently was scheduled to see another GI physician last month when she was seen at the office, she complained about several months of not being able to eat has temporal wasting had attempted EGD done not able to pass the scope had barium swallow done, esophageal mass noted patient had CT scan done had positive lymph nodes patient admitted by the Hospitalist patient is being transfered to [facility] for tertiary care I spoke to the patient personally about her diagnosis Past Medical History Cardiac Medical History: Reports: Hypertension Denies: Coronary Artery Disease, Myocardial Infarction Pulmonary Medical History: Denies: Asthma, Bronchitis, Chronic Obstructive Pulmonary Disease (COPD), Pneumonia Neurological Medical History: Denies: Seizures Endocrine Medical History: Reports: None Renal/ Medical History: Reports: None Musculoskeltal Medical History: 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 Hematology: Denies: Anemia Infectious Medical History: Reports: None Past Surgical History Past Surgical History: Reports: None Denies: Hysterectomy Social History Lives with: Alone Smoking Status: Current Every Day Smoker Cigarettes Packs Per Day: 1 Number of Years Smokin Last Time Smoked: this am Frequency of Alcohol Use: Social Hx Recreational Drug Use: No Drugs: None Hx Prescription Drug Abuse: No - Advance Directive Resuscitation Status: Full Code Family History Parental Family History Reviewed: Yes Children Family History Reviewed: Unknown Sibling(s) Family History Reviewed.: Unknown Medication/Allergy Home Medications: Amlodipine Besylate [Norvasc 10 mg Tablet] 10 mg PO DAILY 05/26/17 Pantoprazole Sodium [Protonix] 40 mg PO DAILY 05/26/17 Promethazine HCl [Phenergan 25 mg Tablet] 25 mg PO Q6HP PRN 05/26/17 Allergies/Adverse Reactions: No Known Allergies Allergy (Verified 05/06/17 08:29) Review of Systems Constitutional: PRESENT: weakness, weight loss. ABSENT: fever(s), headache(s), night sweats Eyes: ABSENT: visual disturbances Ears: ABSENT: hearing changes Nose, Mouth, and Throat: PRESENT: sore throat. ABSENT: mouth pain Cardiovascular: ABSENT: chest pain, edema, orthropnea, palpitations Respiratory: ABSENT: dyspnea, hemoptysis Gastrointestinal: PRESENT: constipation, dysphagia. ABSENT: diarrhea, melena Genitourinary: ABSENT: dysuria, hematuria Musculoskeletal: ABSENT: deformity, joint swelling Integumentary: ABSENT: lesions, pruritus Neurological: PRESENT: weakness. ABSENT: syncope, tingling, tremor(s) Psychiatric: ABSENT: hallucinations Endocrine: ABSENT: polydipsia, polyphagia, polyuria Hematologic/Lymphatic: ABSENT: easy bruising Physical Exam Vital Signs: Temp Pulse Resp BP Pulse Ox 98.5 F 74 18 106/74 100 05/27/17 11:00 05/27/17 11:00 05/27/17 11:00 05/27/17 11:00 05/27/17 11:00 Intake & Output 05/26/17 05/27/17 05/28/17 06:59 06:59 06:59 Intake Total 2450 Balance 2450 Weight 65.8 kg General appearance: PRESENT: no acute distress, cooperative, thin Head exam: PRESENT: atraumatic, normocephalic Eye exam: PRESENT: EOMI, PERRLA. ABSENT: periorbital swelling, scleral icterus Mouth exam: PRESENT: dry mucosa Neck exam: ABSENT: meningismus, tenderness, thyromegaly Respiratory exam: PRESENT: symmetrical, unlabored. ABSENT: tachypnea, wheezes GI/Abdominal exam: PRESENT: soft. ABSENT: Mello's sign, rebound, rigid, tenderness Extremities exam: ABSENT: joint swelling, pedal edema Musculoskeletal exam: PRESENT: full ROM Neurological exam: PRESENT: alert, awake, oriented to time, oriented to situation, CN II-XII grossly intact Skin exam: PRESENT: normal color. ABSENT: mottled, pallor, urticaria, vesicles Results Laboratory Results: 05/26/17 17:11 05/27/17 05:50 05/26/17 05/26/17 05/27/17 17:11 17:11 05:50 WBC 13.6 H RBC 4.65 Hgb 13.0 Hct 38.1 MCV 82 MCH 28.0 MCHC 34.2 RDW 14.4 H Plt Count 458 H Sodium 132.0 L 130.5 L Potassium 2.6 L* 3.0 L* Chloride 81 L 87 L Carbon Dioxide 37 H 35 H Anion Gap 14 9 BUN 17 16 Creatinine 0.84 0.72 Est GFR ( Amer) > 60 > 60 Est GFR (Non-Af Amer) > 60 > 60 Glucose 90 90 Calcium 10.1 9.1 Magnesium 1.7 05/27/17 05:50 WBC RBC Hgb Hct MCV MCH MCHC RDW Plt Count Sodium Potassium Chloride Carbon Dioxide Anion Gap BUN Creatinine Est GFR ( Amer) Est GFR (Non-Af Amer) Glucose Calcium Magnesium 1.6 Impressions: Guidance Fluoroscopy 05/26/17 00:00 IMPRESSION: SUCCESSFUL PLACEMENT OF A 5 FR DUAL LUMEN 36 CM PICC IN THE LEFT BASILIC VEIN. Interventional Vascular Procedure 05/26/17 00:00 IMPRESSION: SUCCESSFUL PLACEMENT OF A 5 FR DUAL LUMEN 36 CM PICC IN THE LEFT BASILIC VEIN. PICC Line Insertion 05/26/17 00:00 IMPRESSION: SUCCESSFUL PLACEMENT OF A 5 FR DUAL LUMEN 36 CM PICC IN THE LEFT BASILIC VEIN. 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 Intermittent subglottic aspiration of thin liquids Chest CT 05/27/17 00:00 IMPRESSION: CT extensive proximal 3rd esophageal tumor with mediastinal adenopathy. Small amount of dependent debris in the left mainstem bronchus worrisome for aspirated material. No pneumonia. Assessment & Plan - Diagnosis (1) Esophageal mass Is this a current diagnosis for this admission?: Yes Plan: not able to have EGD done since it is obstructive to obtain tissue diagnosis patient not able to eat will need to have tertiary care need CT surgery however may not be candidate will need a surgically place G or J tube since patient is not able to get any nutrition at all I spoke with the patient regarding her diagnosis - Time Time Spent: 50 to 70 Minutes
[2017-05-27 15:53] VITALS: BP 96/54
--- NOTE | 2017-05-27 15:58 | PDOC TRANSFER SUMMARY ---
General Admission Date/PCP: 05/27/17 13:54 ADAL DÍAZ MD Transfer Date: 05/27/17 Accepting Facility: [facility] Accepting Physician: Dr. Nehemiah Garrido Resuscitation Status: Full Code - Transfer Diagnosis (1) Esophageal mass Is this a current diagnosis for this admission?: Yes Diagnosis Summary: An EGD was attempted by gastroenterology as an outpatient. They were unable to pass the scope. An esophagram showed incomplete obstruction. Chest CT shows a 10 x 4 cm esophageal mass in the upper one third of the esophagus. (2) Hypertension Is this a current diagnosis for this admission?: Yes Diagnosis Summary: The patient's outpatient antihypertensives have been held because of relatively low blood pressures (3) Hypokalemia Is this a current diagnosis for this admission?: Yes Diagnosis Summary: Patient has been given IV supplementation. - Transfer Medications Home Medications: Amlodipine Besylate [Norvasc 10 mg Tablet] 10 mg PO DAILY 05/26/17 Pantoprazole Sodium [Protonix] 40 mg PO DAILY 05/26/17 Promethazine HCl [Phenergan 25 mg Tablet] 25 mg PO Q6HP PRN 05/26/17 Transfer Medications: Current Medications Acetaminophen (Tylenol 325 Mg Tablet) 650 mg PO Q4HP PRN PRN Reason: FOR PAIN OR TEMP Stop: 06/25/17 15:06 Famotidine (Pepcid Inj/Pf 20 Mg/2 Ml Sdv) 20 mg IV Q12 [facility] Stop: 06/25/17 21:59 Last Admin: 05/27/17 09:48 Dose: 20 mg Heparin Sodium (Porcine) (Heparin Flush 10 Unit/Ml 5 Ml Disp.Syrg) 30 unit IV Q12 [facility] Stop: 06/25/17 21:59 Last Admin: 05/27/17 09:48 Dose: Not Given Heparin Sodium (Porcine) (Heparin Flush 10 Unit/Ml 5 Ml Disp.Syrg) 30 unit IV .AFTER EACH USE PRN Stop: 06/25/17 16:32 Sodium Chloride (Nacl 0.9% 1000 Ml Iv Soln) 1,000 mls @ 150 mls/hr IV CONTINUOUS PRN PRN Reason: THIS MED IS NOT "PRN" Stop: 06/25/17 15:06 Ondansetron HCl (Zofran Inj/Pf 4 Mg/2 Ml Sdv) 4 mg IV Q4HP PRN PRN Reason: FOR NAUSEA/VOMITING Stop: 06/25/17 15:06 Sodium Chloride (Saline Flush 2.5 Ml Monoject Prefil Syrin) 2.5 ml IV Q8 [facility] Stop: 06/25/17 21:59 Last Admin: 05/27/17 13:59 Dose: Not Given Sodium Chloride (Nacl 0.9% Inj/Pf 10 Ml Sdv) 10 ml IV Q12 [facility] Stop: 06/25/17 21:59 Last Admin: 05/27/17 09:48 Dose: Not Given Sodium Chloride (Nacl 0.9% Inj/Pf 10 Ml Sdv) 10 ml IV .AFTER EACH USE PRN Stop: 06/25/17 16:32 - Allergies Allergies/Adverse Reactions: No Known Allergies Allergy (Verified 05/06/17 08:29) - Diet/Activity Discharge Diet: Full Liquids Hospital Course Hospital Course: 56-year-old female who has had a 60 pound weight loss over the last several months. She also has had problems with dysphagia for solid foods. The patient was seen as an outpatient by gastroenterology for EGD which was unable to be done because of an esophageal mass. She was then sent to be evaluated as an inpatient. The patient had esophagram which showed incomplete obstruction. A chest CT was done and showed there to be a 10 x 4 cm mass in the upper one third of the esophagus. Patient had a PICC line placed and was started on IV fluids as well as IV potassium replacement. Patient is feeling better but is still having difficulties with anything other than liquids. This patient most likely will need a stent placed in her esophagus and because of this, needs to be referred to a tertiary care center. The case was discussed with Dr. Nehemiah Garrido at [facility] who graciously agrees to accept the patient in transfer. Patient has a hypertension history however her blood pressure medications were held because her blood pressure is relatively low she presented. They have not been restarted. Physical Exam Vital Signs: Temp Pulse Resp BP Pulse Ox 98.5 F 74 18 106/74 100 05/27/17 11:00 05/27/17 11:00 05/27/17 11:00 05/27/17 11:00 05/27/17 11:00 Intake & Output 05/26/17 05/27/17 05/28/17 06:59 06:59 06:59 Intake Total 2450 Balance 2450 Weight 65.8 kg General appearance: PRESENT: no acute distress Eye exam: PRESENT: conjunctiva pink. ABSENT: scleral icterus Mouth exam: PRESENT: moist, tongue midline Neck exam: ABSENT: JVD Respiratory exam: PRESENT: clear to auscultation belg[place]. ABSENT: rales, rhonchi, wheezes Cardiovascular exam: PRESENT: RRR. ABSENT: diastolic murmur, rubs, systolic murmur GI/Abdominal exam: PRESENT: normal bowel sounds, soft. ABSENT: distended, guarding, mass, organolmegaly, rebound, tenderness Extremities exam: ABSENT: calf tenderness, clubbing, pedal edema Neurological exam: PRESENT: alert, awake, oriented to person, oriented to place , oriented to time, oriented to situation, CN II-XII grossly intact. ABSENT: motor sensory deficit Skin exam: PRESENT: dry, intact, warm. ABSENT: cyanosis, rash Results Laboratory Results: 05/26/17 17:11 05/27/17 05:50 05/26/17 05/26/17 05/27/17 17:11 17:11 05:50 WBC 13.6 H RBC 4.65 Hgb 13.0 Hct 38.1 MCV 82 MCH 28.0 MCHC 34.2 RDW 14.4 H Plt Count 458 H Sodium 132.0 L 130.5 L Potassium 2.6 L* 3.0 L* Chloride 81 L 87 L Carbon Dioxide 37 H 35 H Anion Gap 14 9 BUN 17 16 Creatinine 0.84 0.72 Est GFR ( Amer) > 60 > 60 Est GFR (Non-Af Amer) > 60 > 60 Glucose 90 90 Calcium 10.1 9.1 Magnesium 1.7 05/27/17 05:50 WBC RBC Hgb Hct MCV MCH MCHC RDW Plt Count Sodium Potassium Chloride Carbon Dioxide Anion Gap BUN Creatinine Est GFR ( Amer) Est GFR (Non-Af Amer) Glucose Calcium Magnesium 1.6 Impressions: Guidance Fluoroscopy 05/26/17 00:00 IMPRESSION: SUCCESSFUL PLACEMENT OF A 5 FR DUAL LUMEN 36 CM PICC IN THE LEFT BASILIC VEIN. Interventional Vascular Procedure 05/26/17 00:00 IMPRESSION: SUCCESSFUL PLACEMENT OF A 5 FR DUAL LUMEN 36 CM PICC IN THE LEFT BASILIC VEIN. PICC Line Insertion 05/26/17 00:00 IMPRESSION: SUCCESSFUL PLACEMENT OF A 5 FR DUAL LUMEN 36 CM PICC IN THE LEFT BASILIC VEIN. 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 Intermittent subglottic aspiration of thin liquids Chest CT 05/27/17 00:00 IMPRESSION: CT extensive proximal 3rd esophageal tumor with mediastinal adenopathy. Small amount of dependent debris in the left mainstem bronchus worrisome for aspirated material. No pneumonia. Plan Discharge Plan: Patient is transferred to [facility]. Dr. Nehemiah Garrido is the accepting physician. Time Spent: Greater than 30 Minutes
== END 2017-05-27 18:40 | disposition short-term general hospital (02) | DRG 392 ==
LOC: END 12:25 → 5 14:19 → INTOOBSV 14:19 → OBSVTOIN 05-27 13:54
PROVIDERS: ADMIT Internal Medicine; ATTEND Internal Medicine
PROC: B518ZZA Fluoroscopy of Superior Vena Cava, Guidance (ICD-10-PCS; 2017-05-26)
PROC: B548ZZA Ultrasonography of Superior Vena Cava, Guidance (ICD-10-PCS; 2017-05-26)
PROC: 02HV33Z Insertion of Infusion Device into Superior Vena Cava, Percutaneous Approach (ICD-10-PCS; principal; 2017-05-26 13:00)
DX: K22.2 Esophageal obstruction (principal); R13.10 Dysphagia, unspecified; Z53.8 Procedure and treatment not carried out for other reasons; E87.6 Hypokalemia; I10 Essential (primary) hypertension; E86.0 Dehydration; K22.8 Other specified diseases of esophagus; R63.4 Abnormal weight loss; J02.9 Acute pharyngitis, unspecified; R11.10 Vomiting, unspecified; F17.210 Nicotine dependence, cigarettes, uncomplicated; Z68.22 Body mass index [BMI] 22.0-22.9, adult
CPT/HCPCS: 36415; 36569; 71260; 74220; 76937; 77001; 80048; 83735; 85027; 85610; 85730; G0378; J0171; J1200; J1610; J1642; J2250; J2310; J2405; J3010; J3480; J3490; S0028

== ENCOUNTER → 2017-07-19 | Outpatient (CLI) | payer SELFPAY ==
--- NOTE | 2017-07-20 08:28 | RADIOLOGY REPORT (SQ) ---
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 RADIONUCLIDE AND DOSE: 10.3 mCi F18 FDG The route of agent administration: Intravenous FASTING BLOOD SUGAR: 87 mg/dl CONTRAST TYPE AND DOSE: No CT contrast given. TECHNIQUE: Blood glucose level was verified. Above dose of FDG was injected intravenously. 2-D seg mented attenuation correction images were obtained from the base of the skull to the midthighs. Nonc ontrast CT images were obtained for attenuation correction and fusion with emission images. CT image s were performed without oral or intravenous contrast and are not sensitive for parenchymal lesions. A series of overlapping emission PET images were obtained. Images reviewed and manipulated at [facility] work station by the radiologist. Images stored on PACS. LIMITATIONS: None. FINDINGS: HEAD AND NECK: There is a rind of increased uptake measuring about 9.8 SUV in the superior thoracic esophagus adjacent to the stent. Similar uptake within a level 1 R node measuring about 1. 5 cm in diameter. CHEST: No areas of abnormal metabolic activity in the chest. ABDOMEN AND PELVIS: No areas of abnormal metabolic activity in the abdomen or pelvis. Expected physi ologic activity is present in the genitourinary system and bowel. PROXIMAL LOWER EXTREMITIES: No areas of abnormal metabolic activity in the soft tissues of the lower extremities. BONES: No abnormal metabolic activity in the visualized skeleton. ADDITIONAL CT FINDINGS: Gastrostomy. Calcified uterine fibroids. Small anterior abdominal wall leslie ias. OTHER: No other significant findings. IMPRESSION: Hypermetabolic proximal thoracic esophagus. Hypermetabolic right level 1 lymph node. N o evidence of metastatic disease below the diaphragm. TECHNICAL DOCUMENTATION: JOB ID: [id number] [employer]- All Rights Reserved
== END ==
LOC: RAD 14:51
PROVIDERS: ATTEND Internal Medicine Hematology & Oncology
DX: C15.3 Malignant neoplasm of upper third of esophagus (principal)
CPT/HCPCS: 78815; A9552

== ENCOUNTER 2017-07-26 10:31 | Day surgery (SDC) | payer SELFPAY ==
[~2017-07-26 10:31] MED LIST: CEFAZOLIN 1 GM/D5W RTU 1 GM/50 ML RTUPB IV PRN; DEXTROSE 5%-1/2 NORMAL SALINE 1,000 ML IV PRN; DIAZEPAM 5 MG TABLET PO PRN; OXYCODONE-ACETAMINOPHEN 5-325 MG TABLET PO PRN
[2017-07-26] MEDS ORDERED: MIDAZOLAM 2 MG/2 ML INJ ONE (12:05)
[2017-07-26] MEDS ORDERED: LIDOCAINE 0.5% INJ-PF (5 MG/ML) 50 ML SDV ONE (12:05)
[2017-07-26] MEDS ORDERED: BACITRACIN INJ 50,000 UNIT VIAL ONE (12:06)
[2017-07-26] MEDS ORDERED: FENTANYL CITRATE INJ/PF 100 MCG/2 ML AMPUL ONE (12:06)
[2017-07-26 12:14] LABS: HEMATOCRIT 31.4 % (36.0-47.0); HEMOGLOBIN 10.4 g/dL (12.0-15.5); MEAN CORPUSCULAR HGB CONC 33.1 g/dL (32.0-36.0); MEAN CORPUSCULAR VOLUME 85 fl (80-97); PLATELET COUNT 519 10^3/uL (150-450); RED BLOOD COUNT 3.71 10^6/uL (3.72-5.28); RED CELL DISTRIBUTION WIDTH 18.6 % (11.5-14.0); WHITE BLOOD COUNT 13.1 10^3/uL (4.0-10.5)
--- NOTE | 2017-07-26 12:15 | RADIOLOGY REPORT (SQ) ---
EXAM DESCRIPTION: CHEST SINGLE VIEW COMPLETED DATE/TIME: 07/26/2017 11:35 am REASON FOR STUDY: PREOP COMPARISON: None. EXAM PARAMETERS: NUMBER OF VIEWS: One view. TECHNIQUE: Single frontal radiographic view of the chest acquired. RADIATION DOSE: NA LIMITATIONS: None. FINDINGS: LUNGS AND PLEURA: No opacities, masses or pneumothorax. No pleural effusion. MEDIASTINUM AND HILAR STRUCTURES: No masses. Contour normal. HEART AND VASCULAR STRUCTURES: Heart normal in size. Normal vasculature. BONES: No acute findings. HARDWARE: 16 cm esophageal stent deployed in the proximal 1/2 of the esophagus. Appears widely paten t. OTHER: No other significant finding. IMPRESSION: Status post esophageal stent deployment. No significant pulmonary pathology. TECHNICAL DOCUMENTATION: JOB ID: [id number] [employer]- All Rights Reserved
[2017-07-26 12:36] LABS: ANION GAP 10 (5-19); BLOOD UREA NITROGEN 5 mg/dL (7-20); CALCIUM 9.3 mg/dL (8.4-10.2); CARBON DIOXIDE 25 mmol/L (22-30); CHLORIDE 104 mmol/L (98-107); GLUCOSE 91 mg/dL (75-110); POTASSIUM 4.1 mmol/L (3.6-5.0); SODIUM 139.1 mmol/L (137-145)
[2017-07-26] MEDS ORDERED: CEFAZOLIN INJ 1 GM VIAL ONE (12:55)
--- NOTE | 2017-07-26 13:59 | PDOC DISCHARGE SUMMARY ---
Discharge Summary (SDC) - Discharge Final Diagnosis: #1 esophageal cancer. 2. Hypertension. Date of Surgery: 07/26/17 Discharge Date: 07/26/17 Condition: Fair Treatment or Instructions: Discharge home [after recovery per ASU criteria]. Diet ,as tolerated, when fully awake advance as tolerated. Activities within moderation encouraged. Follow up in my office by appointment in about [1 week]. Call for appointment. Leave wounds [covered], [keep clean and dry, until office visit in 1 week]. Hold of on school/work [until evaluation in office]. Meds per med rec. Percocet. May shower [in 48 hrs], [try to keep operated area as dry as possible]. Prescriptions: Oxycodone HCl/Acetaminophen [Percocet 5-325 mg Tablet] 1 tab PO ASDIR PRN #15 tab PRN Reason: Referrals: ADAL DÍAZ MD [Primary Care Provider] - Discharge Diet: As Tolerated Respiratory Treatments at Home: Deep Breathing/Coughing Discharge Activity: Activity As Tolerated Report the Following to Your Physician Immediately: Shortness of Breath, Unusual Bleeding
--- NOTE | 2017-07-26 14:14 | RADIOLOGY REPORT (SQ) ---
EXAM DESCRIPTION: PORTACATH INSERTION COMPLETED DATE/TIME: 07/26/2017 1:44 pm REASON FOR STUDY: C15.9 ESOPHAGEAL CA C15.9 MALIGNANT NEOPLASM OF ESOPHAGUS, UNSPECIFIED COMPARISON: Chest film 07/26/2017 FLUOROSCOPY TIME: 0.1 minutes 7 series of digital images saved to PACS. TECHNIQUE: Intra-operative images acquired during surgical procedure to evaluate progress. NUMBER OF IMAGES: 7 series of digital images LIMITATIONS: None. FINDINGS: Intra procedural imaging and fluoro during placement of a right-sided permanent central li ne with the tip in the superior vena cava. Radiopaque esophageal stent is present. IMPRESSION: Intra procedural imaging and fluoro COMMENT: Quality ID [id number]: Final reports for procedures using fluoroscopy that document radiation exp osure indices, or exposure time and number of fluorographic images (if radiation exposure indices are not available) Please consult full operative report of the attending physician for description of the procedure. TECHNICAL DOCUMENTATION: JOB ID: [id number] [employer]- All Rights Reserved
[2017-07-26 15:02] VITALS: BP 130/81
--- NOTE | 2017-07-26 16:08 | Operative Report ---
Operative Report DATE OF SURGERY: 07/26/17 PREOPERATIVE DIAGNOSIS: 1. esophageal cancer. 2. Hypertension. POSTOPERATIVE DIAGNOSIS: 1. esophageal cancer. 2. Hypertension. OPERATION: 1. Ultrasound evaluation of the right internal jugular vein. 2. Insertion of Port-A-Cath via real-time access in the right internal jugular vein. 3. Angiogram and interpretation. SURGEON: COLTON SARKAR PEST CONTROL SERVICE SALES AGENT: None ANESTHESIA: Moderate Sedation TISSUE REMOVED OR ALTERED: Not applicable. COMPLICATIONS: None. ESTIMATED BLOOD LOSS: 5 mL. INTRAOPERATIVE FINDINGS: Of a satisfactory right internal jugular vein, estimated to be about 1.2 cm in diameter. Sufficient to support Port-A-Cath. Satisfactory egress of blood and ingress of heparinized solution. Angiogram demonstrates flow through the catheter, right atrium. PROCEDURE: After obtaining informed consent, the patient was taken to the Fence Installer Helper and positioned supine. The [right] neck and chest were prepared with chlorhexidine and draped out with sterile linen. After the " universal timeout", in which it was verified that the patient continued to receive antibiotic, the procedure commenced. A steriley sheathed ultrasound probe was used to evaluate the [ right] internal jugular vein. Local anesthesia was infiltrated adjacent to the probe. Access into the [right] internal jugular vein was obtained using a micropuncture needle, followed by micropuncture wire and then a micropuncture catheter. This was followed by introduction of a 0.035 guidewire the tip of which was placed down into the inferior vena cava . The port sites was marked , locally anesthetized and incision made. Dissection now proceeded to the deep subcutaneous subcutaneous tissues so that a pocket for the port was made. Meticulous hemostasis was secured and the catheter was tunneled between the 2 incisions. Proximally, the catheter was now positioned using a peel-away sheath. Distally the catheter was tailored to an appropriate length and then mated to the port using the contained fixating device. The port was now placed in the pocket and the catheter optimally positioned. The port was accessed with a Enriquez needle and an angiogram done under digital subtraction. The findings as dictated. With adequate and satisfactory positioning, both lumens of the chamber were irrigated with heparinized solution. The wounds were now closed using interrupted 3-0 PDS to the subcutaneous tissues and a continuous subcuticular suture of 4-0 Monocryl to the skin. These are reinforced with Steri-Strips over benzoin and then dressings applied. Time: 0.1 minute. Dose: 1.72 m Gy Contrast: 5 mls. Isovue 300. Copies of the dictated operative report for Dr. Colton Gurrola MD.
== END 2017-07-26 14:55 | disposition home or self-care (01) ==
LOC: CCL 10:31
PROVIDERS: ATTEND Surgery
PROC: 0JH60WZ Insertion of Totally Implantable Vascular Access Device into Chest Subcutaneous Tissue and Fascia, Open Approach (ICD-10-PCS; principal; 2017-07-26)
PROC: 06H033Z Insertion of Infusion Device into Inferior Vena Cava, Percutaneous Approach (ICD-10-PCS; 2017-07-26)
DX: C15.9 Malignant neoplasm of esophagus, unspecified (principal); I10 Essential (primary) hypertension; Z79.899 Other long term (current) drug therapy
CPT/HCPCS: 36561 ×2; 36415; 85027; 80048; 76937; 77001; 71045; C1752; Q9967; J2250; J3490 ×2; J0690; J3010; J1644

== ENCOUNTER 2017-07-31 01:31 | Inpatient (IN) | payer SELFPAY ==
[2017-07-31] MEDS ORDERED: RACEPINEPHRINE HCL 2.25% NEB 0.5 ML AMPUL NEB ONE (01:36)
[2017-07-31] MEDS ORDERED: DEXAMETHASONE SOD PHOS INJ 10 MG/1 ML VIAL IV ONE ×2 (01:37→05:15)
[2017-07-31] MEDS ORDERED: ONDANSETRON HCL INJ/PF 4 MG/2 ML SDV IV ONE (01:55)
[2017-07-31] MEDS ORDERED: LORAZEPAM INJ 2 MG/1 ML VIAL IV ONE (01:55)
--- NOTE | 2017-07-31 01:55 | ER Document Report ---
ED General - General Stated Complaint: DIFFICULTY BREATHING Time Seen by Provider: 07/31/17 01:36 Cannot obtain history due to: Unstable vital signs Notes: Patient is a 56-year-old female with a past medical history of a recent diagnosis of esophageal carcinoma with recent esophageal stent placement, recent diagnosis of a lower extremity DVT, currently anticoagulated who presents in respiratory distress. Patient reports that for the past 3 days she has had progressively worsening shortness of breath feeling like she cannot "swallow air". She arrives by EMS who found her to be saturating 84% in room air at time of their initial arrival. Patient has no prior history of restrictive or obstructive lung disease. She did receive albuterol nebulizers in route without any significant improvement in her symptoms. She has not yet notified her primary oncology team about these current symptoms. History is otherwise limited secondary to patient's clinical condition at time of presentation. TRAVEL OUTSIDE OF THE [place] IN LAST 30 DAYS: No - Related Data Allergies/Adverse Reactions: No Known Allergies Allergy (Verified 05/06/17 08:29) Past Medical History - General Information source: Patient, Emergency Med Personnel - Social History Smoking Status: Former Smoker Frequency of alcohol use: None Drug Abuse: None Lives with: Family Family History: Reviewed & Not Pertinent - Past Medical History Cardiac Medical History: Reports: Hx Hypertension Denies: Hx Coronary Artery Disease, Hx Heart Attack Pulmonary Medical History: Denies: Hx Asthma, Hx Bronchitis, Hx COPD, Hx Pneumonia Neurological Medical History: Denies: Hx Cerebrovascular Accident, Hx Seizures Renal/ Medical History: Denies: Hx Peritoneal Dialysis Musculoskeltal Medical History: Reports Hx Arthritis - Hands Past Surgical History: Denies: Hx Hysterectomy - Immunizations Hx Diphtheria, Pertussis, Tetanus Vaccination: No Physical Exam - Vital signs Vitals: Temp Pulse Resp BP Pulse Ox 97.7 F 97 22 H 98/74 L 100 07/31/17 01:35 07/31/17 01:35 07/31/17 01:35 07/31/17 01:35 07/31/17 01:35 Course - Re-evaluation Re-evalutation: 07/31/17 01:40 Patient presents in moderate respiratory distress, notable stridor on exam no significant component of wheezing. Patient had been receiving treatment for possible COPD type exacerbation prior to arrival but does not carry diagnosis of COPD and is not wheezing on exam. Her lung examination is notable only for diminished air movement in all lung kelly. However, patient is in moderate respiratory distress and was initially saturating 84% on room air. She will be admitted to BiPAP to assist with her respirations and started on racemic epinephrine as well as dexamethasone. She will require frequent reassessments due to her high risk for respiratory decompensation. 07/31/17 02:40 Patient has had marked improvement of her work of breathing on BiPAP, no longer in respiratory distress, saturating 100% on 40% FiO2. Labs show that she had acute CO2 retention but no significant acidosis. Labs also show a leukocytosis and anemia of chronic disease. chest x-ray is clear. Will continue to reassess the patient frequently. I have will contact [facility] to arrange for transfer as patient will require evaluation by her primary oncology team. 07/31/17 03:03 Patient continues to have significant improvement in her work of breathing, no longer distress. I have contacted [facility] and waiting a call back. 07/31/17 03:21 [facility] hematology oncology does not feel patient requires immediate transfer, I spoke with Dr. Alvarez the oncologist on-call who likewise agrees that the patient given that she is doing much better does not require immediate transfer. She has requested a CT scan of the neck but does not believe this should preclude disposition decision. Will discuss with hospitalist. 07/31/17 03:[address] Ward is accepted this patient for hospitalization. The patient continues to be resting calmly, no longer having significant stridor, overall much improved clinically. She is in stable condition at this time. - Vital Signs Vital signs: Temp Pulse Resp BP Pulse Ox 97.7 F 102 H 21 H 98/74 L 100 07/31/17 01:35 07/31/17 01:35 07/31/17 01:45 07/31/17 01:35 07/31/17 01:45 - Laboratory Result Diagrams: 07/31/17 02:00 07/31/17 02:00 Laboratory results interpreted by me: 07/31/17 07/31/17 07/31/17 02:00 02:00 02:00 WBC 16.6 H RBC 3.54 L Hgb 9.9 L Hct 30.5 L RDW 17.9 H Plt Count 498 H Absolute Neutrophils 10.3 H Absolute Eosinophils 0.7 H VBG pCO2 66.7 H* BUN 6 L Glucose 132 H - Diagnostic Test Radiology reviewed: Image reviewed, Reports reviewed Radiology results interpreted by me: 07/31/17 03:39 Chest x-ray: No acute infiltrate or pneumothorax Critical Care Note - Critical Care Note Total time excluding time spent on procedures (mins): 38 Comments: Critical care time spent obtaining history from patient or surrogate, discussions with consultants, development of treatment plan with patient or surrogate, evaluation of patient's response to treatment, examination of patient , ordering and performing treatments and interventions, ordering and review of laboratory studies, re-evaluation of patient's condition, ordering and review of radiographic studies and review of old charts Discharge - Discharge Clinical Impression: Respiratory distress, Esophageal carcinoma, Stridor Condition: Fair Disposition: ADMITTED INPATIENT Admitting Provider: Hospitalist - [facility] Admitted: Telemetry Referrals: ADAL DÍAZ MD [Primary Care Provider] - Follow up as needed
[2017-07-31 02:16] LABS: ABSOLUTE BASOPHILS # (AUTO) 0.1 10^3/uL (0.0-0.2); ABSOLUTE EOSINOPHILS # (AUTO) 0.7 10^3/uL (0.0-0.6); ABSOLUTE LYMPHOCYTES (AUTO) 4.5 10^3/uL (0.5-4.7); ABSOLUTE MONOCYTES (AUTO) 1.1 10^3/uL (0.1-1.4); ABSOLUTE NEUT (AUTO) 10.3 10^3/uL (1.7-8.2); BASOPHILS % (AUTO) 0.7 % (0-2); HEMATOCRIT 30.5 % (36.0-47.0); HEMOGLOBIN 9.9 g/dL (12.0-15.5); MEAN CORPUSCULAR HEMOGLOBIN 28.1 pg (27.0-33.4); MEAN CORPUSCULAR HGB CONC 32.6 g/dL (32.0-36.0); MEAN CORPUSCULAR VOLUME 86 fl (80-97); MONOCYTES % (AUTO) 6.5 % (3-13); PLATELET COUNT 498 10^3/uL (150-450); RED BLOOD COUNT 3.54 10^6/uL (3.72-5.28); RED CELL DISTRIBUTION WIDTH 17.9 % (11.5-14.0); SEGMENTED NEUTROPHILS % (AUTO) 61.8 % (42-78); TOTAL CELLS COUNTED % (AUTO) 100 %; WHITE BLOOD COUNT 16.6 10^3/uL (4.0-10.5)
[2017-07-31 02:18] LABS: VENOUS BLOOD HCO3 31.9 mmol/L (20-32); VENOUS BLOOD PH 7.3 (7.30-7.42)
[2017-07-31 02:20] LABS: VENOUS BLOOD PCO2 66.7 mmHg (35-63)
[2017-07-31 02:35] LABS: ANION GAP 12 (5-19); BLOOD UREA NITROGEN 6 mg/dL (7-20); CALCIUM 8.6 mg/dL (8.4-10.2); CARBON DIOXIDE 27 mmol/L (22-30); CHLORIDE 102 mmol/L (98-107); GLUCOSE 132 mg/dL (75-110); SODIUM 141.4 mmol/L (137-145)
--- NOTE | 2017-07-31 02:39 | RADIOLOGY REPORT (SQ) ---
EXAM DESCRIPTION: CHEST SINGLE VIEW CLINICAL HISTORY: sob COMPARISON: 07/26/2017 FINDINGS: Single frontal view of the chest. Right IJ Mediport. Tortuosity of thoracic aorta. Esophageal stent identified. Heart is not enlarged. No consolidation, pneumothorax, or pleural effusion. No displaced rib fractures identified. Upper abdominal soft tissues are unremarkable. IMPRESSION: 1. No acute pulmonary process identified.
--- NOTE | 2017-07-31 02:41 | RADIOLOGY REPORT (SQ) ---
EXAM DESCRIPTION: SOFT TISSUE NECK CLINICAL HISTORY: sob COMPARISON: 03/01/2017 FINDINGS: Right IJ Mediport. Partial visualization of esophageal stent. Prevertebral soft tissues are unremarkable. Degenerative change of the cervical spine. Epiglottis is unremarkable. Elevation no definite abnormalities. No radiopaque foreign body. Visualized lung apices are clear. IMPRESSION: 1. Esophageal stent identified. Otherwise no acute abnormality identified in the neck soft tissues.
[2017-07-31] MEDS ORDERED: NORMAL SALINE 1000 ML 1,000 ML IV ONE (02:42)
--- NOTE | 2017-07-31 04:25 | RADIOLOGY REPORT (SQ) ---
EXAM DESCRIPTION: 1. CT of the neck soft tissues with contrast. CLINICAL HISTORY: stridor, sob COMPARISON: None Available. TECHNIQUE: Axial CT images of the neck soft tissues obtained following the uncomplicated intravenous administration of 75 mL Isovue-370. FINDINGS: CT of the neck soft tissues: No abnormalities of visualized orbits or globes. No facial bone fractures identified. Paranasal sinuses are well aerated. Mastoid air cells are well aerated. Degenerative change of the cervical spine. Centrilobular emphysematous changes. Right IJ Mediport. Atherosclerotic calcification of the visualized thoracic aorta. No abnormalities of the buccal or office helper spaces. The parapharyngeal spaces are unremarkable. No abnormalities in the pharyngeal mucosal space or retropharyngeal space. The fossa of Rosenmuller demonstrate no gross abnormalities. The tongue base demonstrates no gross abnormalities. No cervical lymphadenopathy identified. Visualized thyroid gland is unremarkable. No abnormalities of the epiglottis. Atherosclerotic calcification of the carotid arteries. Esophageal stent is present. There is soft tissue density at the superior aspect of the stent. There is diffuse wall thickening of the esophagus surrounding the stent. The esophageal stent is likely self-expanding and may be producing mass effect on the posterior wall of the trachea superiorly. DLP: 286.88 mGy-cm IMPRESSION: 1. Esophageal stent is likely self-expanding and there is esophageal wall thickening. This may produce mild mass effect on the dorsal aspect of the proximal trachea at the level of the right brachiocephalic artery. 2. Soft tissue density in the proximal esophageal stent. This is of indeterminate etiology. Correlation for dysphagia recommended. Esophagram may be beneficial. This exam was performed according to our departmental dose-optimization program, which includes automated exposure control, adjustment of the mA and/or kV according to patient size and/or use of iterative reconstruction technique.
[2017-07-31] MEDS ORDERED: ACETAMINOPHEN 325 MG TABLET PO PRN (04:53)
[2017-07-31] MEDS ORDERED: DOCUSATE SODIUM 100 MG CAPSULE PO PRN (04:53)
[2017-07-31] MEDS ORDERED: IPRATROPIUM/ALBUTEROL 0.5-2.5 MG/3 ML AMPUL NEB PRN (04:53)
[2017-07-31] MEDS ORDERED: PROMETHAZINE HCL INJ 25 MG/1 ML VIAL IV PRN (04:53)
[2017-07-31] MEDS ORDERED: DIPHENHYDRAMINE HCL 25 MG CAPSULE PO PRN (04:59)
[2017-07-31] MEDS ORDERED: DEXAMETHASONE SOD PHOS INJ 10 MG/1 ML VIAL IV SCH (06:00)
[2017-07-31] MEDS: HEPARIN SOD (PORCINE) 5,000 UNIT/ML 1 ML SYRINGE SUBCUT SCH ×2 (07:22→14:06)
[2017-07-31] MEDS ORDERED: NORMAL SALINE 1000 ML 1,000 ML IV PRN (07:26)
[2017-07-31] MEDS ORDERED: NICOTINE 14 MG/24 HR PATCH.TD24 TD SCH (07:30)
--- NOTE | 2017-07-31 08:04 | PDOC H&P ---
History of Present Illness Admission Date/PCP: 07/31/17 03:43 ADAL DÍAZ MD Patient complains of: Shortness of breath and stridor for the last 4 days. History of Present Illness: ANIKET NAILS is a 56 year old female with a history of esophageal cancer ( post esophageal stent, Port-A-Cath and PEG tube, not on chemotherapy yet) was admitted with above-mentioned complaints. She said that she had an undocumented fever, chills and productive cough of whitish sputum. She was also having stridor and drooling and she was progressively getting short of breath, no sick contact. She, however, denied any chest pain, vomiting, abdominal pain, diarrhea or constipation or any urinary symptoms or focal weakness. She mentioned that her esophageal stent was placed about a month ago and that her Port-A-Cath was placed on 07/28/2016. Post her Port-A-Cath placement, she starting having respiratory symptoms. In the ED, her temperature was 97.7, heart rate 97, respiratory rate 22, blood pressure 98/74 with oxygen saturation of 84% on room air. Her WBC was 16.6 and hemoglobin was 9.9. Her pH was 7.3 and her PCO2 was 66.7. X-rays of her chest and neck were unremarkable. A CAT scan of her neck was done which showed esophageal stent in place with mild esophageal wall thickening and soft tissue density in the proximal esophageal stent of indeterminate etiology. She received a racemic epinephrine 1, 1 mg IV Ativan 1 and 10 mg IV dexamethasone 1. She was also placed on BiPAP with improvement in her symptoms. Past Medical History Medical History: Other - According to the patient and based on previous records. Cardiac Medical History: Reports: Hypertension Denies: Coronary Artery Disease, Myocardial Infarction Pulmonary Medical History: Denies: Asthma, Bronchitis, Chronic Obstructive Pulmonary Disease (COPD), Pneumonia Neurological Medical History: Denies: Seizures Malignancy Medical History: Reports: Other - esophageal cancer. Musculoskeltal Medical History: Reports: Arthritis - Hands Hematology: Denies: Anemia Past Surgical History Past Surgical History: Reports: Other - esophageal stent; PEG tube and Port-A- Cath. Denies: Hysterectomy Social History Lives with: Family Smoking Status: Former Smoker Cigarettes Packs Per Day: 0.5 - Half a pack a day for more than 30 years. Frequency of Alcohol Use: None - She used to drinking a bottle of wine about 2- 3 days for many years. She quit 6 months ago. Hx Recreational Drug Use: No Drugs: None Hx Prescription Drug Abuse: No Family History Family History: Reviewed & Not Pertinent Parental Family History Reviewed: Yes - Father: Diabetic, mother: Diabetic Children Family History Reviewed: No Sibling(s) Family History Reviewed.: Yes Medication/Allergy Home Medications: Amlodipine Besylate [Norvasc 10 mg Tablet] 10 mg PO DAILY 05/26/17 Diltiazem HCl [Diltiazem ER] 180 mg PO 07/26/17 [place] Magic Mouthwash PRN 07/26/17 Oxycodone HCl/Acetaminophen [Percocet 5-325 mg Tablet] 1 tab PO ASDIR PRN #15 tab 07/26/17 Allergies/Adverse Reactions: No Known Allergies Allergy (Verified 05/06/17 08:29) Review of Systems ROS unobtainable: Other - Pertinent positives and negatives as detailed in the HPI. Physical Exam Vital Signs: Temp Pulse Resp BP Pulse Ox 97.7 F 102 H 14 98/74 L 100 07/31/17 01:35 07/31/17 01:35 07/31/17 04:24 07/31/17 01:35 07/31/17 04:24 General appearance: PRESENT: no acute distress, well-developed Head exam: PRESENT: atraumatic, normocephalic Eye exam: PRESENT: conjunctiva pink, PERRLA. ABSENT: scleral icterus Mouth exam: PRESENT: moist, tongue midline Neck exam: PRESENT: full ROM Respiratory exam: PRESENT: decreased breath sounds, rhonchi. ABSENT: rales, wheezes Cardiovascular exam: PRESENT: RRR - S1 S2 muffled. Pulses: PRESENT: normal dorsalis pedis pul GI/Abdominal exam: PRESENT: normal bowel sounds, soft. ABSENT: distended, guarding, rebound, tenderness Rectal exam: PRESENT: deferred Extremities exam: PRESENT: full ROM. ABSENT: pedal edema Neurological exam: PRESENT: alert, awake, oriented to person, oriented to place , oriented to time, oriented to situation. ABSENT: motor sensory deficit Skin exam: PRESENT: dry, intact, warm. ABSENT: cyanosis, rash Results Laboratory Results: CBC: WBC 16.6, hemoglobin 9.9, hematocrit 30.5, MCV 86, RDW of 17.9, platelets 498. VBG: PH 7.30/PCO2 66.7. BMP: Sodium 141, potassium 4.0, chloride 102, bicarb 27, anion gap 12, BUN 6, creatinine 0.59, glucose 132, calcium 8.6. EKG Comments: His EKG sinus rhythm, ventricular rate 100, axis +30, QTc prolongation, first- degree AV block, no acute changes. Impressions: Chest X-Ray 07/31/17 01:38 IMPRESSION: 1. No acute pulmonary process identified. Soft Tissue Neck X-Ray 07/31/17 01:38 IMPRESSION: 1. Esophageal stent identified. Otherwise no acute abnormality identified in the neck soft tissues. Soft Tissue Neck CT 07/31/17 03:21 IMPRESSION: 1. Esophageal stent is likely self-expanding and there is esophageal wall thickening. This may produce mild mass effect on the dorsal aspect of the proximal trachea at the level of the right brachiocephalic artery. 2. Soft tissue density in the proximal esophageal stent. This is of indeterminate etiology. Correlation for dysphagia recommended. Esophagram may be beneficial. This exam was performed according to our departmental dose-optimization program, which includes automated exposure control, adjustment of the mA and/or kV according to patient size and/or use of iterative reconstruction technique. Assessment & Plan - Diagnosis (1) Acute and chronic respiratory failure, unspecified whether with hypoxia or hypercapnia Qualifiers: Respiratory failure complication: hypoxia and hypercapnia Qualified Code(s) : J96.21 - Acute and chronic respiratory failure with hypoxia; J96.22 - Acute and chronic respiratory failure with hypercapnia; J96.22 - Acute and chronic respiratory failure with hypercapnia; J96.22 - Acute and chronic respiratory failure with hypercapnia Is this a current diagnosis for this admission?: Yes Plan: Possibly secondary to bronchospasm resolved after receiving racemic epinephrine in the ED. x-rays of her chest and neck were negative for any acute findings. CAT scan of the soft tissue of the neck was reviewed with report as mentioned in the lab section. We will start Decadron every 8 hours and continue BiPAP as needed. ENT and/or GI may need to be consulted to obtain a biopsy of the "soft tissue density" mentioned in the CAT scan report. Of note, esophagram was recommended by radiology. Will defer to oncology consulted by the ED physician (2) Leukocytosis, unspecified Qualifiers: Leukocytosis type: unspecified Qualified Code(s): D72.829 - Elevated white blood cell count, unspecified Is this a current diagnosis for this admission?: Yes Plan: Secondary to inflammation/hemoconcentration, questionable infection. Her chest x-ray was negative. Will check UA and and start antibiotics if indicated. (3) Essential hypertension Is this a current diagnosis for this admission?: Yes Plan: The patient's blood pressure was borderline low. We will continue to monitor and adjust BP medications as indicated. (4) Smoker Is this a current diagnosis for this admission?: No Plan: Half a pack a day for more than 30 years. She is down to 3 cigarettes a day. She is motivated to quit. Nicotine patch. - Time Time Spent: 50 to 70 Minutes Anticipated discharge: Home - Inpatient Certification Based on my medical assessment, after consideration of the patient's comorbidities, presenting symptoms, or acuity I expect that the services needed warrant INPATIENT care.: Yes I certify that my determination is in accordance with my understanding of Medicare's requirements for reasonable and necessary INPATIENT services [42 CFR 412.3e].: Yes
--- NOTE | 2017-07-31 08:56 | EKG REPORT ---
SEVERITY:- ABNORMAL ECG - SINUS TACHYCARDIA BORDERLINE T ABNORMALITIES, ANT-LAT LEADS : Confirmed by: George Oliver MD 31-Jul-2017 08:55:40
[2017-07-31] MEDS ORDERED: DILTIAZEM HCL 180 MG CAPSULE.CR PO SCH (10:00)
[2017-07-31] MEDS ORDERED: FAMOTIDINE 20 MG TABLET PO SCH (10:00)
[2017-07-31] MEDS ORDERED: RACEPINEPHRINE HCL 2.25% NEB 0.5 ML AMPUL NEB PRN (10:30)
[2017-07-31 10:38] LABS: APPEARANCE,URINE CLEAR; BILIRUBIN,URINE NEGATIVE (NEGATIVE); COLOR,URINE YELLOW; GLUCOSE, URINE NEGATIVE (NEGATIVE); KETONES,URINE NEGATIVE (NEGATIVE); LEUKOCYTE ESTERASE,URINE MODERATE (NEGATIVE); NITRITE,URINE NEGATIVE (NEGATIVE); PROTEIN,URINE NEGATIVE (NEGATIVE); URINE SPECIFIC GRAVITY 1.053; UROBILINOGEN,URINE NEGATIVE mg/dL (<2.0)
[2017-07-31 11:13] LABS: INTERNATIONAL RATION (INR) 0.94; PARTIAL THROMBOPLASTIN TIME 28.8 SEC (23.5-35.8); PROTHROMBIN TIME 13.2 SEC (11.4-15.4)
[2017-07-31] MEDS ORDERED: DEXTROSE 50%-WATER 25 GM/50 ML DISP.SYRIN IV PRN ×2 (12:01)
[2017-07-31] MEDS ORDERED: GLUCAGON,HUMAN RECOMB 1 MG INJ SUBCUT PRN (12:01)
[2017-07-31] MEDS ORDERED: DEXTROSE 40% GEL 15 GM TUBE PO PRN ×2 (12:01)
[2017-07-31 12:21] VITALS: BP 93/67
--- NOTE | 2017-07-31 13:39 | PDOC TRANSFER SUMMARY ---
General Admission Date/PCP: 07/31/17 03:43 ADAL DÍAZ MD - Transfer Diagnosis (1) Acute respiratory failure with hypoxia Is this a current diagnosis for this admission?: Yes (2) Stridor Is this a current diagnosis for this admission?: Yes (3) Esophageal mass Is this a current diagnosis for this admission?: Yes (4) Leukocytosis, unspecified Is this a current diagnosis for this admission?: Yes - Transfer Medications Home Medications: Diltiazem HCl [Diltiazem 24Hr Cd] 120 mg PO DAILY 07/31/17 Famotidine [Pepcid 20 mg Tablet] 20 mg PO Q12 07/31/17 L. Rhamnosus GG/Inulin [Culturelle Capsule] 1 cap PO DAILY 07/31/17 Metoclopramide HCl [Reglan 10 mg Tablet] 10 mg PO ACHS 07/31/17 Nystatin/Dexameth/Diphen [Magic Mouthwash (Omh Formula) Susp] 5 ml PO QID Ondansetron [Zofran Odt] 8 mg PO TIDP PRN 07/31/17 Prochlorperazine Maleate [Compazine 10 mg Tablet] 10 mg PO Q6HP PRN 07/31/17 Rivaroxaban [Xarelto] 20 mg PO DAILY 07/31/17 Sucralfate [Carafate Susp 1 Gm/10 Ml Udcup] 1 gm PO ACHS 07/31/17 Transfer Medications: Current Medications Acetaminophen (Tylenol 325 Mg Tablet) 650 mg PO Q4HP PRN Stop: 08/30/17 04:52 Albuterol/Ipratropium (Duoneb 3 Ml Ampul) 3 ml NEB RTQ4HP PRN PRN Reason: SHORTNESS OF BREATH Stop: 08/30/17 04:52 Last Admin: 07/31/17 12:08 Dose: 3 ml Dexamethasone Sodium Phosphate (Decadron Inj 10 Mg/1 Ml Vial) 8 mg IV Q8 SADIA Stop: 08/30/17 05:59 Dextrose (Dextrose Inj 50% Syringe (25 Gm/50 Ml)) 12.5 gm IV PRN PRN; Protocol PRN Reason: FOR BG 50-69 IN ALERT PATIENT Stop: 08/30/17 12:00 Dextrose (Dextrose Inj 50% Syringe (25 Gm/50 Ml)) 25 gm IV PRN PRN; Protocol PRN Reason: See Label Comments Stop: 08/30/17 12:00 Diltiazem HCl (Cardizem Cd 180 Mg Capsule) 180 mg PO DAILY [facility] Stop: 08/30/17 09:59 Last Admin: 07/31/17 10:10 Dose: 180 mg Diphenhydramine HCl (Benadryl 25 Mg Capsule) 25 mg PO Q4HP PRN PRN Reason: ITCHING Stop: 08/30/17 04:58 Docusate Sodium (Colace 100 Mg Capsule) 100 mg PO BID PRN PRN Reason: constipation Stop: 08/30/17 09:59 Last Admin: 07/31/17 10:10 Dose: 100 mg Epinephrine (S-2 Neb Soln 2.25% Ampul) 0.5 ml NEB Q1HP PRN Stop: 08/30/17 10:29 Famotidine (Pepcid 20 Mg Tablet) 20 mg PO Q12 SADIA Stop: 08/30/17 09:59 Last Admin: 07/31/17 10:11 Dose: 20 mg Glucagon (Glucagen Inj 1 Mg Vial) 1 mg SUBCUT PRN PRN; Protocol PRN Reason: Evaluate for BG < 70 Stop: 08/30/17 12:00 Glucose (Glutose 40% Gel 15 Gm Tube) 15 gm PO PRN PRN; Protocol PRN Reason: For BG 50-69 in Alert Patient Stop: 08/30/17 12:00 Glucose (Glutose 40% Gel 15 Gm Tube) 30 gm PO PRN PRN; Protocol PRN Reason: FOR BG < 50 IN ALERT PATIENT Stop: 08/30/17 12:00 Heparin Sodium (Porcine) (Heparin Inj 5,000 Units/Ml 1 Ml Syringe) 5,000 unit SUBCUT Q8 SADIA Stop: 08/30/17 05:59 Last Admin: 07/31/17 07:22 Dose: 5,000 unit Sodium Chloride (Nacl 0.9% 1000 Ml Iv Soln) 1,000 mls @ 75 mls/hr IV CONTINUOUS PRN PRN Reason: THIS MED IS NOT "PRN" Stop: 08/30/17 07:25 Nicotine (Nicoderm 14 Mg/24 Hr Transdermal Patch) 1 each TD DAILY [facility] Stop: 08/30/17 07:29 Last Admin: 07/31/17 10:11 Dose: 1 each Promethazine HCl (Phenergan Inj 25 Mg/1 Ml Vial) 12.5 mg IV Q4HP PRN PRN Reason: FOR NAUSEA/VOMITING Stop: 08/30/17 04:52 - Allergies Allergies/Adverse Reactions: No Known Allergies Allergy (Verified 05/06/17 08:29) Hospital Course Hospital Course: The patient is a 56-year-old female who was recently diagnosed with esophageal cancer. Approximately 1 month ago she underwent a stent placement to the esophagus. She also has a PEG tube in place. She was supposed to start chemotherapy last week, however, she was not taken to her appointment. She did not have transportation. In any event, over the last 2-3 days the patient has had increasing shortness of breath with difficulty swallowing. On Tuesday night the patient developed sudden onset of respiratory distress. She stated that the only way that she could read was by lying on her left side. Of note, the patient was diagnosed with a DVT while in [place]. She is currently receiving Xarelto. The patient presented with evidence of stridor and drooling. In the emergency department she was given racemic epinephrine with dexamethasone as well as Benadryl and Pepcid. CT scan of the neck demonstrates that the stent is impinging on the posterior trachea. I have called the physicians in [place] and they have graciously accepted the patient. Therefore, the patient will be emergently transferred to [place] under the care of Dr. Rm. The patient is being maintained on n.p.o. status. Currently, her Xarelto is on hold. Physical Exam Vital Signs: Temp Pulse Resp BP Pulse Ox 98.2 F 73 19 93/67 L 98 07/31/17 12:03 07/31/17 12:08 07/31/17 12:08 07/31/17 12:03 07/31/17 12:03 Additional comments: When I arrived to see the patient she was in the emergency department on BiPAP. However, she was phonating normally. I was able to take the BiPAP mask off. She was not drooling. Her facial appearance is fairly unremarkable. She is edentulous. Her lungs are noted to be clear to auscultation bilaterally. Her cardiac exam is regular without murmurs, gallops or rubs. The abdomen is soft and flat. The lower extremities are unremarkable. They are symmetrical without any pitting edema. The skin is clean, warm, dry and intact. Results Laboratory Results: 07/31/17 10:15 Urine Color YELLOW Urine Appearance CLEAR Urine pH 7.0 Ur Specific [place] 1.053 Urine Protein NEGATIVE Urine Glucose (UA) NEGATIVE Urine Ketones NEGATIVE Urine Blood NEGATIVE Urine Nitrite NEGATIVE Ur Leukocyte Esterase MODERATE H Urine WBC (Auto) 18 Urine RBC (Auto) 3 Impressions: Chest X-Ray 07/31/17 01:38 IMPRESSION: 1. No acute pulmonary process identified. Soft Tissue Neck X-Ray 07/31/17 01:38 IMPRESSION: 1. Esophageal stent identified. Otherwise no acute abnormality identified in the neck soft tissues. Soft Tissue Neck CT 07/31/17 03:21 IMPRESSION: 1. Esophageal stent is likely self-expanding and there is esophageal wall thickening. This may produce mild mass effect on the dorsal aspect of the proximal trachea at the level of the right brachiocephalic artery. 2. Soft tissue density in the proximal esophageal stent. This is of indeterminate etiology. Correlation for dysphagia recommended. Esophagram may be beneficial. This exam was performed according to our departmental dose-optimization program, which includes automated exposure control, adjustment of the mA and/or kV according to patient size and/or use of iterative reconstruction technique. Plan Discharge Plan: The patient will be transferred to [facility] in [facility] for definitive management of the esophageal stent. She may require additional procedures that cannot be accomplished at our facility. Tracheostomy may be required. Time Spent: Less than 30 Minutes
== END 2017-07-31 14:43 | disposition short-term general hospital (02) | DRG 919 ==
LOC: ER 01:31 → EH 03:43 → 4W 08:18
PROVIDERS: ADMIT Internal Medicine Geriatric Medicine; ATTEND Internal Medicine Geriatric Medicine
PROC: 5A09357 Assistance with Respiratory Ventilation, Less than 24 Consecutive Hours, Continuous Positive Airway Pressure (ICD-10-PCS; principal; 2017-07-31)
DX: T85.898A Other specified complication of other internal prosthetic devices, implants and grafts, initial encounter (principal); J96.21 Acute and chronic respiratory failure with hypoxia; C15.9 Malignant neoplasm of esophagus, unspecified; I10 Essential (primary) hypertension; D72.829 Elevated white blood cell count, unspecified; F17.210 Nicotine dependence, cigarettes, uncomplicated; M13.842 Other specified arthritis, left hand; M13.841 Other specified arthritis, right hand; Z93.1 Gastrostomy status; Z86.718 Personal history of other venous thrombosis and embolism; Z79.02 Long term (current) use of antithrombotics/antiplatelets
CPT/HCPCS: 36415; 70360; 70491; 71045; 80048; 81001; 82803; 85025; 85610; 85730; 93005; 93010; 94640; 94660; 96361; 96374; 96375; 99291; J1100; J1644; J2060; J2405; J3490; J7030; J7620

== ENCOUNTER 2017-08-11 08:55 | Outpatient (CLI) | payer SELFPAY ==
[~2017-08-11 08:55] MED LIST changes: +CARBOPLATIN IV PRN; -CEFAZOLIN 1 GM/D5W RTU 1 GM/50 ML RTUPB IV PRN; +DEXAMETHASONE SOD PHOS INJ 10 MG/1 ML VIAL IV PRN; +DEXTROSE 5% IV PRN; -DEXTROSE 5%-1/2 NORMAL SALINE 1,000 ML IV PRN; -DIAZEPAM 5 MG TABLET PO PRN; +DIPHENHYDRAMINE HCL 50 MG/ML VIAL IV PRN; +FAMOTIDINE/PF 20 MG in NORMAL SALINE 50 ML IV PRN; +NORMAL SALINE 250 ML IV PRN; +NORMAL SALINE IV PRN; -OXYCODONE-ACETAMINOPHEN 5-325 MG TABLET PO PRN; +PACLITAXEL SEMI SYNTHETIC IV PRN; +PALONOSETRON 0.25 MG/5 ML SDV IV PRN; +WATER IV PRN
[2017-08-11 10:07] VITALS: BP 139/70
[2017-08-11 10:17] LABS: ABSOLUTE BASOPHILS # (AUTO) 0.1 10^3/uL (0.0-0.2); ABSOLUTE EOSINOPHILS # (AUTO) 0.1 10^3/uL (0.0-0.6); ABSOLUTE LYMPHOCYTES (AUTO) 2.1 10^3/uL (0.5-4.7); ABSOLUTE MONOCYTES (AUTO) 0.8 10^3/uL (0.1-1.4); ABSOLUTE NEUT (AUTO) 14.4 10^3/uL (1.7-8.2); BASOPHILS % (AUTO) 0.3 % (0-2); EOSINOPHILS % (AUTO) 0.4 % (0-6); HEMATOCRIT 31.9 % (36.0-47.0); HEMOGLOBIN 10.3 g/dL (12.0-15.5); MEAN CORPUSCULAR HEMOGLOBIN 28.5 pg (27.0-33.4); MEAN CORPUSCULAR HGB CONC 32.3 g/dL (32.0-36.0); MEAN CORPUSCULAR VOLUME 88 fl (80-97); MONOCYTES % (AUTO) 4.6 % (3-13); PLATELET COUNT 411 10^3/uL (150-450); RED BLOOD COUNT 3.62 10^6/uL (3.72-5.28); RED CELL DISTRIBUTION WIDTH 18.7 % (11.5-14.0); SEGMENTED NEUTROPHILS % (AUTO) 82.7 % (42-78); TOTAL CELLS COUNTED % (AUTO) 100 %; WHITE BLOOD COUNT 17.5 10^3/uL (4.0-10.5)
[2017-08-11 10:43] LABS: ALANINE AMINOTRANSFERASE 56 U/L (9-52); ALBUMIN 3.3 g/dL (3.5-5.0); ALKALINE PHOSPHATASE 46 U/L (38-126); ANION GAP 11 (5-19); ASPARTATE AMINO TRANSFERASE 16 U/L (14-36); BILIRUBIN,DIRECT 0.3 mg/dL (0.0-0.4); BILIRUBIN,TOTAL 0.3 mg/dL (0.2-1.3); BLOOD UREA NITROGEN 14 mg/dL (7-20); CALCIUM 9.7 mg/dL (8.4-10.2); CARBON DIOXIDE 25 mmol/L (22-30); CHLORIDE 101 mmol/L (98-107); GLUCOSE 94 mg/dL (75-110); POTASSIUM 4.2 mmol/L (3.6-5.0); SODIUM 136.7 mmol/L (137-145); TOTAL PROTEIN 6.2 g/dL (6.3-8.2)
== END 2017-08-11 15:53 | disposition home or self-care (01) ==
LOC: II 08:55 → 5TH 10:04 → II 15:53
PROVIDERS: ATTEND Internal Medicine Hematology & Oncology
PROC: 3E04305 Introduction of Other Antineoplastic into Central Vein, Percutaneous Approach (ICD-10-PCS; principal; 2017-08-11)
PROC: 3E0433Z Introduction of Anti-inflammatory into Central Vein, Percutaneous Approach (ICD-10-PCS; 2017-08-11)
PROC: 3E043GC Introduction of Other Therapeutic Substance into Central Vein, Percutaneous Approach (ICD-10-PCS; 2017-08-11)
DX: Z51.11 Encounter for antineoplastic chemotherapy (principal); C15.3 Malignant neoplasm of upper third of esophagus
CPT/HCPCS: 36415; 85025; 80053; 96413; 96415; 96367; 96374; 96375; 96417; J1200; J9045 ×2; J7060; J7040; J9267; S0028; J1100; J2469

== ENCOUNTER 2017-09-01 10:41 | Outpatient (CLI) | payer SELFPAY ==
[~2017-09-01 10:41] MED LIST changes: -DEXAMETHASONE SOD PHOS INJ 10 MG/1 ML VIAL IV PRN; +DEXAMETHASONE SOD PHOSPHATE 10 MG in DEXTROSE 5%-WATER 50 ML IV PRN; -NORMAL SALINE 250 ML IV PRN
[2017-09-01 11:18] LABS: ALANINE AMINOTRANSFERASE 40 U/L (9-52); ALBUMIN 3.3 g/dL (3.5-5.0); ALKALINE PHOSPHATASE 51 U/L (38-126); ANION GAP 5 (5-19); ASPARTATE AMINO TRANSFERASE 26 U/L (14-36); BILIRUBIN,DIRECT 0.3 mg/dL (0.0-0.4); BILIRUBIN,TOTAL 0.3 mg/dL (0.2-1.3); BLOOD UREA NITROGEN 19 mg/dL (7-20); CALCIUM 8.6 mg/dL (8.4-10.2); CARBON DIOXIDE 31 mmol/L (22-30); CHLORIDE 105 mmol/L (98-107); GLUCOSE 77 mg/dL (75-110); POTASSIUM 5.6 mmol/L (3.6-5.0); SODIUM 140.5 mmol/L (137-145); TOTAL PROTEIN 5.9 g/dL (6.3-8.2)
[2017-09-01 11:19] VITALS: BP 148/82
[2017-09-01] MEDS: NORMAL SALINE 250 ML IV PRN ×2 (12:17→12:57)
== END 2017-09-01 17:18 | disposition home or self-care (01) ==
LOC: II 10:41 → 5TH 11:06 → II 17:18
PROVIDERS: ATTEND Internal Medicine Hematology & Oncology
PROC: 3E04305 Introduction of Other Antineoplastic into Central Vein, Percutaneous Approach (ICD-10-PCS; principal; 2017-09-01)
PROC: 3E0433Z Introduction of Anti-inflammatory into Central Vein, Percutaneous Approach (ICD-10-PCS; 2017-09-01)
PROC: 3E043GC Introduction of Other Therapeutic Substance into Central Vein, Percutaneous Approach (ICD-10-PCS; 2017-09-01)
DX: Z51.11 Encounter for antineoplastic chemotherapy (principal); C15.3 Malignant neoplasm of upper third of esophagus; R62.7 Adult failure to thrive; E46 Unspecified protein-calorie malnutrition; Z68.22 Body mass index [BMI] 22.0-22.9, adult; I10 Essential (primary) hypertension; R13.19 Other dysphagia; Z72.0 Tobacco use; Z79.899 Other long term (current) drug therapy
CPT/HCPCS: 36415; 84132; 80053; 96413; 96415; 96367; 96375; J1200; J9045; J7060; J7040; J9267; S0028; J1100; J2469

== ENCOUNTER 2017-10-20 22:13 | Emergency (ER) | payer MEDICAID ==
[2017-10-20] MEDS ORDERED: RACEPINEPHRINE HCL 2.25% NEB 0.5 ML AMPUL NEB ONE (22:40)
--- NOTE | 2017-10-20 22:43 | ER Document Report ---
ED General - General Chief Complaint: Breathing Difficulty Stated Complaint: DIFFICULTY BREATHING Time Seen by Provider: 10/20/17 22:37 Mode of Arrival: Ambulatory Information source: Patient TRAVEL OUTSIDE OF THE [place] IN LAST 30 DAYS: No - HPI Patient complains to provider of: sob Onset: Just prior to arrival Onset/Duration: Gradual, Constant Associated symptoms: Shortness of breath Notes: Discharge provided yesterday and presents with shortness of breath today. She has a history of a lung cancer and was recently status post radiation and chemotherapy. She follows up with Dr. Hawley. She has an appointment October 24 at 2:[address] Perez. Pt. is DNR and presents with paperwork. - Related Data Allergies/Adverse Reactions: No Known Allergies Allergy (Verified 05/06/17 08:29) Past Medical History - General Information source: Patient - Social History Smoking Status: Former Smoker Lives with: Family Family History: Reviewed & Not Pertinent - Past Medical History Cardiac Medical History: Reports: Hx Hypertension Denies: Hx Coronary Artery Disease, Hx Heart Attack Pulmonary Medical History: Denies: Hx Asthma, Hx Bronchitis, Hx COPD, Hx Pneumonia Neurological Medical History: Denies: Hx Cerebrovascular Accident, Hx Seizures Renal/ Medical History: Denies: Hx Peritoneal Dialysis Musculoskeltal Medical History: Reports Hx Arthritis - Hands Past Surgical History: Reports: Other - esophageal stent; PEG tube and Port-A- Cath.. Denies: Hx Hysterectomy - Immunizations Hx Diphtheria, Pertussis, Tetanus Vaccination: No Review of Systems - Review of Systems Constitutional: See HPI EENT: See HPI Cardiovascular: No symptoms reported Respiratory: See HPI Gastrointestinal: No symptoms reported Genitourinary: No symptoms reported Female Genitourinary: No symptoms reported Skin: No symptoms reported Neurological/Psychological: No symptoms reported Physical Exam - Vital signs Vitals: Temp Pulse Resp BP Pulse Ox 99.3 F 129 H 20 142/112 H 94 10/20/17 22:20 10/20/17 22:20 10/20/17 22:20 10/20/17 22:20 10/20/17 22:20 - Notes Notes: Female exam PHYSICAL EXAMINATION: GENERAL: Chronically ill-appearing. Mild acute distress HEAD: Atraumatic, normocephalic. EYES: Pupils equal round and reactive to light, extraocular movements intact, conjunctiva are normal. ENT: Nares patent. Moist mucous membranes. NECK: Normal range of motion, supple without lymphadenopathy patient changes to neck area LUNGS: Breath sounds clear to auscultation bilaterally and equal. No wheezes rales or rhonchi. Positive stridor HEART: tachy ABDOMEN: Soft, nontender, nondistended abdomen. No guarding, no rebound. No masses appreciated. Female : deferred Musculoskeletal: Normal range of motion, no pitting or edema. No cyanosis. NEUROLOGICAL: Cranial nerves grossly intact. Normal sensory, motor exams PSYCH: Normal mood, normal affect. SKIN: Warm, Dry, normal turgor, no rashes or lesions noted. Course - Re-evaluation Re-evalutation: 10/21/17 00:57 Discusssed case with hospitalist Dr. White and he feels pt. is complex and should be transferred back to [facility]. Call placed to transfer center. 10/21/17 00:58 Labs- All tests 24 hr 10/20/17 10/20/17 10/20/17 23:20 23:20 23:20 WBC 2.3 L RBC 3.86 Hgb 11.9 L Hct 35.2 L MCV 91 MCH 30.9 MCHC 33.9 RDW 20.9 H Plt Count 178 Total Counted 100 Seg Neutrophils % Not Reportable Seg Neuts % (Manual) 50 Band Neutrophils % 4 Lymphocytes % Not Reportable Lymphocytes % (Manual) 28 Atypical Lymphs % 3 Monocytes % Not Reportable Monocytes % (Manual) 13 Eosinophils % Not Reportable Eosinophils % (Manual) 0 Basophils % Not Reportable Basophils % (Manual) 0 Metamyelocytes % 2 H Absolute Neutrophils Not Reportable Abs Neuts (Manual) 1.3 L Absolute Lymphocytes Not Reportable Abs Lymphs (Manual) 0.7 Absolute Monocytes Not Reportable Abs Monocytes (Manual) 0.3 Absolute Eosinophils Not Reportable Absolute Eos (Manual) 0.0 Absolute Basophils Not Reportable Abs Basophils (Manual) 0.0 Nucleated RBCs 4 Platelet Comment ADEQUATE Polychromasia SLIGHT Poikilocytosis SLIGHT Anisocytosis 2+ Ovalocytes SLIGHT Sodium 138.8 Potassium 3.7 Chloride 97 L Carbon Dioxide 34 H Anion Gap 8 BUN 26 H Creatinine 0.62 Est GFR ( Amer) > 60 Est GFR (Non-Af Amer) > 60 Glucose 86 Calcium 9.8 Total Bilirubin 0.5 Direct Bilirubin 0.4 Neonat Total Bilirubin Not Reportable Neonat Direct Bilirubin Not Reportable Neonat Indirect Bili Not Reportable AST 30 ALT 82 H Alkaline Phosphatase 71 Troponin I < 0.012 NT-Pro-B Natriuret Pep 684 Total Protein 6.9 Albumin 3.7 Chest X-Ray 10/20/17 22:38 IMPRESSION: NEW PATCHY LEFT LOWER LOBE AIRSPACE DISEASE SUSPICIOUS FOR DEVELOPING PNEUMONIA. 10/21/17 01:11 Call placed to [facility]- there is a 3 day wait for a bed. Pt. to be placed on transfer list. Await call back from hospitalist at [facility]. 10/21/17 01:[address] Stein at oncology at [facility]. Pt. has h/o esophageal stent/cancer and was discharged from there 2 days ago. He accepts patient. 10/21/17 02:04 10/21/17 03:01 Transportation will not be here to get the patient until at least 7 AM. I did go through her current medication list I did order her her medications that she needed. She states she has not been on Xarelto for the last few days because the pharmacy did not have it. - Vital Signs Vital signs: Temp Pulse Resp BP Pulse Ox 99.3 F 129 H 24 H 119/91 H 95 10/20/17 22:20 10/20/17 22:20 10/21/17 02:14 10/21/17 02:01 10/21/17 02:14 - Laboratory Result Diagrams: 10/20/17 23:20 10/20/17 23:20 Laboratory results interpreted by me: 10/20/17 10/20/17 23:20 23:20 WBC 2.3 L Hgb 11.9 L Hct 35.2 L RDW 20.9 H Metamyelocytes % 2 H Abs Neuts (Manual) 1.3 L Chloride 97 L Carbon Dioxide 34 H BUN 26 H ALT 82 H - Diagnostic Test Radiology reviewed: Image reviewed, Reports reviewed Critical Care Note - Critical Care Note Total time excluding time spent on procedures (mins): 45 Comments: 45 minutes of critical care time spent in direct contact evaluating and reevaluating the patient, treating symptoms, reviewing labs and studies and speaking with family and consultants excluding any procedures Discharge - Discharge Clinical Impression: Pneumonia, Stridor, Esophageal carcinoma, DNR (do not resuscitate) Condition: Serious Disposition: [facility]
--- NOTE | 2017-10-20 23:03 | RADIOLOGY REPORT (SQ) ---
EXAM DESCRIPTION: CHEST SINGLE VIEW COMPLETED DATE/TIME: 10/20/2017 10:53 pm REASON FOR STUDY: sob COMPARISON: 09/05/2017 EXAM PARAMETERS: NUMBER OF VIEWS: One view. TECHNIQUE: Single frontal radiographic view of the chest acquired. RADIATION DOSE: NA LIMITATIONS: None. FINDINGS: LUNGS AND PLEURA: New patchy left lower lobe airspace disease. Lungs otherwise clear. No pleural effusion pneumothorax. MEDIASTINUM AND HILAR STRUCTURES: No masses. Contour normal. HEART AND VASCULAR STRUCTURES: Heart normal in size. Normal vasculature. BONES: No acute findings. HARDWARE: Stable position of right-sided port and esophageal stent. OTHER: No other significant finding. IMPRESSION: NEW PATCHY LEFT LOWER LOBE AIRSPACE DISEASE SUSPICIOUS FOR DEVELOPING PNEUMONIA. TECHNICAL DOCUMENTATION: JOB ID: [id number] [employer]- All Rights Reserved Reading location - IP/workstation name: [email or web address]
--- NOTE | 2017-10-20 23:08 | EKG REPORT ---
SEVERITY:- ABNORMAL ECG - SINUS TACHYCARDIA LVH WITH SECONDARY REPOLARIZATION ABNORMALITY : Confirmed by: Jeff King 20-Oct-2017 20:06:44
[2017-10-20] MEDS ORDERED: FENTANYL CITRATE INJ/PF 100 MCG/2 ML AMPUL IV ONE (23:24)
[2017-10-20 23:44] LABS: ALANINE AMINOTRANSFERASE 82 U/L (9-52); ALBUMIN 3.7 g/dL (3.5-5.0); ALKALINE PHOSPHATASE 71 U/L (38-126); ANION GAP 8 (5-19); ASPARTATE AMINO TRANSFERASE 30 U/L (14-36); BILIRUBIN,DIRECT 0.4 mg/dL (0.0-0.4); BILIRUBIN,TOTAL 0.5 mg/dL (0.2-1.3); BLOOD UREA NITROGEN 26 mg/dL (7-20); CALCIUM 9.8 mg/dL (8.4-10.2); CARBON DIOXIDE 34 mmol/L (22-30); CHLORIDE 97 mmol/L (98-107); GLUCOSE 86 mg/dL (75-110); POTASSIUM 3.7 mmol/L (3.6-5.0); SODIUM 138.8 mmol/L (137-145); TOTAL PROTEIN 6.9 g/dL (6.3-8.2)
[2017-10-20 23:45] LABS: HEMATOCRIT 35.2 % (36.0-47.0); HEMOGLOBIN 11.9 g/dL (12.0-15.5); MEAN CORPUSCULAR HEMOGLOBIN 30.9 pg (27.0-33.4); MEAN CORPUSCULAR HGB CONC 33.9 g/dL (32.0-36.0); MEAN CORPUSCULAR VOLUME 91 fl (80-97); PLATELET COUNT 178 10^3/uL (150-450); RED BLOOD COUNT 3.86 10^6/uL (3.72-5.28); RED CELL DISTRIBUTION WIDTH 20.9 % (11.5-14.0); WHITE BLOOD COUNT 2.3 10^3/uL (4.0-10.5)
[2017-10-21] LABS: NT PRO BNP 684 pg/mL (5-900)
[2017-10-21 00:07] LABS: TROPONIN I < 0.012 ng/mL
[2017-10-21 00:10] LABS: ABSOLUTE LYMPHOCYTES# (MANUAL) 0.7 10^3/uL (0.5-4.7); ABSOLUTE MONOCYTES # (MANUAL) 0.3 10^3/uL (0.1-1.4); ABSOLUTE NEUTROPHILS# (MANUAL) 1.3 10^3/uL (1.7-8.2); BAND NEUTROPHILS % (MANUAL) 4 % (3-5); BASOPHILS % (MANUAL) 0 % (0-2); EOSINOPHILS % (MANUAL) 0 % (0-6); LYMPHOCYTES % (MANUAL) 28 % (13-45); METAMYELOCYTES % (MANUAL) 2 % (0); MONOCYTES % (MANUAL) 13 % (3-13); NUCLEATED RED BLOOD CELLS 4 /100 WBC (0); SEGMENTED NEUTROPHILS % (MAN) 50 % (42-78); TOTAL CELLS COUNTED 100
[2017-10-21 00:13] LABS: ANISOCYTOSIS 2+; OVALOCYTES SLIGHT; PLATELET COMMENT ADEQUATE; POIKILOCYTOSIS SLIGHT; POLYCHROMASIA SLIGHT
[2017-10-21] MEDS ORDERED: METHYLPREDNISOLONE INJ 40 MG/1 ML SDV IV ONE (00:34)
[2017-10-21] MEDS ORDERED: LEVOFLOXACIN 500 MG/D5W RTU 500 MG/100 ML RTUPB IV SCH ×2 (01:00→10:00)
[2017-10-21] MEDS ORDERED: LEVOFLOXACIN 500 MG/D5W RTU 500 MG/100 ML RTUPB IV ONE (01:30)
[2017-10-21] MEDS ORDERED: IPRATROPIUM/ALBUTEROL 0.5-2.5 MG/3 ML AMPUL NEB ONE (02:58)
[2017-10-21] MEDS ORDERED: TEMAZEPAM 15 MG CAPSULE PO ONE (03:00)
[2017-10-21] MEDS ORDERED: RIVAROXABAN 10 MG TABLET PO ONE (03:00)
[2017-10-21] MEDS ORDERED: METOPROLOL SUCCINATE 25 MG TAB.SR.24H PO ONE (03:01)
[2017-10-21] MEDS ORDERED: RIVAROXABAN 10 MG TABLET ONE (04:48)
[2017-10-21] MEDS ORDERED: BENZOCAINE/MENTHOL SORE THROAT LOZENGE BUCCAL ONE (04:49)
[2017-10-21] MEDS ORDERED: BENZOCAINE/MENTHOL SORE THROAT LOZENGE ONE (04:56)
--- NOTE | 2017-10-21 07:58 | ER Document Report ---
Doctor's Note Notes: 10/21/17 07:57 The transport team will be here in a few minutes. Patient's vital signs are stable with a heart rate of 104, blood pressure 125/89, pulse oximeter 96%. The patient is stable for transfer at this time.
[2017-10-21 08:00] VITALS: BP 125/89
== END 2017-10-21 08:06 | disposition short-term general hospital (02) ==
LOC: ER 22:13
DX: J18.9 Pneumonia, unspecified organism (principal); C15.9 Malignant neoplasm of esophagus, unspecified; Z96.89 Presence of other specified functional implants; R06.1 Stridor; R06.02 Shortness of breath; I10 Essential (primary) hypertension; Z66 Do not resuscitate; Z85.118 Personal history of other malignant neoplasm of bronchus and lung; Z92.3 Personal history of irradiation; Z92.21 Personal history of antineoplastic chemotherapy; Z87.891 Personal history of nicotine dependence
CPT/HCPCS: 93005; 94640 ×2; 99291; 96375; 96365; 36415; 85025; 80053; 84484; 83880; 71045; 93010; J1956; J3010; J3490 ×3; J2920; J7620